=== PATIENT | female | born 1970 | race Caucasian/White ===

== ENCOUNTER 2018-10-03 19:42 | Emergency (ER) ==
--- NOTE | 2018-10-04 07:38 | EKG REPORT ---
SEVERITY:- NORMAL ECG - SINUS RHYTHM : Confirmed by: Reno Huerta MD 04-Oct-2018 07:38:13
== END 2018-10-04 02:20 | disposition left against medical advice (07) ==
LOC: ER 19:42
DX: Z53.21 Procedure and treatment not carried out due to patient leaving prior to being seen by health care provider (principal)
CPT/HCPCS: 93005; 93010

== ENCOUNTER 2019-07-01 16:57 | Emergency (ER) | payer SELFPAY ==
[2019-07-01 17:04] VITALS: BP 192/89
--- NOTE | 2019-07-01 17:20 | ER Document Report ---
HPI - HPI Patient complains to provider of: scalp pain Time Seen by Provider: 07/01/19 17:18 Onset: Other - 3 days Onset/Duration: Worse Quality of pain: Achy Pain Level: 5 Context: Patient presents complaining of right sided scalp pain. Patient states pain radiates to the ear and she noticed some lumps to her scalp. Patient states that today she noticed some red swollen bumps to the right side of her forehead. Associated Symptoms: denies: Fever Exacerbated by: Denies Relieved by: Denies Similar symptoms previously: No Recently seen / treated by doctor: No - ROS ROS below otherwise negative: Yes Systems Reviewed and Negative: Yes All other systems reviewed and negative - EENT EENT: DENIES: Eye problems - NEURO Neurology: DENIES: Headache - GASTROINTESTINAL Gastrointestinal: DENIES: Nausea - REPRODUCTIVE Reproductive: DENIES: : - DERM Skin Color: Normal Notes: swollen area to scalp Past Medical History - General Information source: Patient - Social History Smoking Status: Never Smoker Frequency of alcohol use: recovering alcoholic Drug Abuse: Other Occupation: none Lives with: Family Family History: Reviewed & Not Pertinent Patient has suicidal ideation: No Patient has homicidal ideation: No - Past Medical History Cardiac Medical History: Reports: Hx Hypertension Pulmonary Medical History: Reports: Hx COPD Psychiatric Medical History: Reports: Hx Anxiety, Hx Bipolar Disorder Past Surgical History: Reports: Hx Section Vertical Provider Document - CONSTITUTIONAL Agree With Documented VS: Yes Exam Limitations: No Limitations General Appearance: WD/WN, No Apparent Distress - INFECTION CONTROL TRAVEL OUTSIDE OF THE [place] IN LAST 30 DAYS: No - HEENT HEENT: Atraumatic, Normal ENT Exam, Normocephalic Notes: Sclera clear, no conjunctival irritation - NECK Neck: Normal Inspection, Supple - RESPIRATORY Respiratory: Breath Sounds Normal, No Respiratory Distress - CARDIOVASCULAR Cardiovascular: Regular Rate, Regular Rhythm - MUSCULOSKELETAL/EXTREMETIES Musculoskeletal/Extremeties: MAEW - NEURO Level of Consciousness: Awake, Alert, Appropriate Motor/Sensory: No Motor Deficit - DERM Integumentary: Warm, Dry, Rash - Patient with erythematous papular lesion to right parietal scalp, patient with erythema and subtle swelling to the right side of forehead Course - Re-evaluation Re-evalutation: 07/01/19 17:23 Discussed with patient concern about possible early case of the shingles at this time given cervical dermatome distribution pattern of tender lesions as well as presence of a erythematous papular lesion to the scalp area. Will start antiviral medication. Discussed worsening symptoms that patient should return for. - Vital Signs Vital signs: Temp Pulse Resp BP Pulse Ox 97.6 F 75 18 192/89 H 96 07/01/19 17:02 07/01/19 17:02 07/01/19 17:02 07/01/19 17:02 07/01/19 17:02 Discharge - Discharge Clinical Impression: Skin rash Condition: Stable Disposition: HOME, SELF-CARE Instructions: Shingles ([facility]) Additional Instructions: Return immediately for any new or worsening symptoms Followup with your primary care provider, call tomorrow to make a followup appointment Prescriptions: Valacyclovir HCl [Valacyclovir] 1,000 mg PO TID #21 tablet Referrals: [facility] [Provider Group] - Follow up as needed
== END 2019-07-01 17:24 | disposition home or self-care (01) ==
LOC: ER 16:57
DX: R21 Rash and other nonspecific skin eruption (principal); R51 Headache; I10 Essential (primary) hypertension; J44.9 Chronic obstructive pulmonary disease, unspecified
CPT/HCPCS: 99282

== ENCOUNTER 2019-08-26 11:49 | Observation (INO) | payer SELFPAY ==
[2019-08-26] MEDS ORDERED: ONDANSETRON 4 MG TAB.RAPDIS PO ONE (12:58)
--- NOTE | 2019-08-26 13:10 | ER Document Report ---
ED Medical Screen (RME) - General Chief Complaint: Abdominal Pain Stated Complaint: ABDOMINAL PAIN Time Seen by Provider: 08/26/19 12:49 Mode of Arrival: Ambulatory Information source: Patient Notes: Otherwise healthy 49-year-old female presents emergency department with abdominal pain. Patient reports upper abdominal pain over the last several weeks, worsening over the last few days. Reports associated nausea with vomiting. Exam: Tenderness the epigastric area and right upper quadrant. I have greeted and performed a rapid initial assessment of this patient. A comprehensive ED assessment and evaluation of the patient, analysis of test results and completion of the medical decision making process will be conducted by additional ED providers. I have specifically instructed the patient or family members with the patient to immediately return to any nursing staff should anything change in the patient's condition or with their chief complaint. TRAVEL OUTSIDE OF THE [place] IN LAST 30 DAYS: No - Related Data Allergies/Adverse Reactions: No Known Allergies Allergy (Unverified 08/26/19 12:52) Past Medical History - Social History Chew tobacco use (# tins/day): No Frequency of alcohol use: Occasional Drug Abuse: None - Past Medical History Cardiac Medical History: Reports: Hx Hypertension Pulmonary Medical History: Reports: Hx COPD Psychiatric Medical History: Reports: Hx Anxiety, Hx Bipolar Disorder Past Surgical History: Reports: Hx Section Physical Exam - Vital signs Vitals: Temp Pulse Resp BP Pulse Ox 98.8 F 88 18 150/97 H 99 08/26/19 11:54 08/26/19 11:54 08/26/19 11:54 08/26/19 11:54 08/26/19 11:54 Course - Vital Signs Vital signs: Temp Pulse Resp BP Pulse Ox 97.4 F 74 20 147/82 H 99 08/26/19 17:10 08/26/19 17:10 08/26/19 17:10 08/26/19 17:10 08/26/19 17:10 - Laboratory Result Diagrams: 08/26/19 13:10 08/26/19 13:10 Laboratory results interpreted by me: 08/26/19 08/26/19 13:10 14:11 Eos % (Auto) 7.8 H Absolute Eos (auto) 0.7 H Urine Blood SMALL H Doctor's Discharge - Discharge Clinical Impression: Chronic cholecystitis without calculus Condition: Good Disposition: ADMITTED INPATIENT
[2019-08-26] MEDS ORDERED: FENTANYL CITRATE INJ/PF 100 MCG/2 ML AMPUL IV ONE (13:14)
[2019-08-26] MEDS ORDERED: NORMAL SALINE 1000 ML 1,000 ML IV ONE (13:15)
--- NOTE | 2019-08-26 13:21 | ER Document Report ---
ED General - General Chief Complaint: Abdominal Pain Stated Complaint: ABDOMINAL PAIN Time Seen by Provider: 08/26/19 12:49 Mode of Arrival: Ambulatory TRAVEL OUTSIDE OF THE [place] IN LAST 30 DAYS: No - HPI Notes: Ms. Diaz is a 49-year-old female with prior history of gallbladder disease now presenting with a chief complaint of severe subxiphoid discomfort radiating through the back. This is been present for about 3 days and is gradually getting worse. Is aggravated by eating and by taking a deep breath. Patient was apparently treated by a physician in [place] several years ago and I recommended cholecystectomy at that time of the patient never followed through with this. She does not recall if she was specifically told that she had gallstones. Patient smokes about a pack cigarettes per day. Occasional social alcohol use. Past surgical history remarkable for . Postmenopausal Takes no regular medications and has no known allergies. - Related Data Allergies/Adverse Reactions: No Known Allergies Allergy (Unverified 08/26/19 12:52) Past Medical History - General Information source: Patient - Social History Smoking Status: Current Every Day Smoker Chew tobacco use (# tins/day): No Frequency of alcohol use: Occasional Drug Abuse: None Family History: Reviewed & Not Pertinent Patient has suicidal ideation: No Patient has homicidal ideation: No - Past Medical History Cardiac Medical History: Reports: Hx Hypertension Pulmonary Medical History: Reports: Hx COPD Psychiatric Medical History: Reports: Hx Anxiety, Hx Bipolar Disorder Past Surgical History: Reports: Hx Section Review of Systems - Review of Systems Notes: Constitutional: Negative for fever. HENT: Negative for sore throat. Eyes: Negative for visual changes. Cardiovascular: Negative for chest pain. Respiratory: Negative for shortness of breath. Gastrointestinal: As per HPI. Genitourinary: Negative for dysuria. Musculoskeletal: Negative for back pain. Skin: Negative for rash. Neurological: Negative for headaches, weakness or numbness. 10 point ROS negative except as marked above and in HPI. Physical Exam - Vital signs Vitals: Temp Pulse Resp BP Pulse Ox 98.8 F 88 18 150/97 H 99 08/26/19 11:54 08/26/19 11:54 08/26/19 11:54 08/26/19 11:54 08/26/19 11:54 - Notes Notes: GENERAL: Well-developed well-nourished female of approximately stated age a ppearing in moderate distress secondary to pain holding hand over subxiphoid area.. SKIN: Good turgor no rashes. HEAD: Normocephalic atraumatic. EYES: PERRLA. Conjunctivae and sclerae clear. EARS: CANALS AND TMS CLEAR. NOSE: CLEAR. MOUTH: Moist mucosa. Good dentition. No stridor or edema. No drooling. NECK: Supple. No masses or thyromegaly. No adenopathy. Carotids 2+ without bruits. No JVD. BACK: Symmetrical without tenderness. CHEST: Respirations unlabored. Breath sounds clear and symmetrical. HEART: Regular rhythm. No murmur gallop or rub. ABDOMEN: Moderate epigastric tenderness without masses, organomegaly or rebound. Bowel sounds normally active. No bruits. GENITALIA: Deferred. EXTREMITIES: No edema. No calf tenderness. Cap refill less than 1.5 seconds. Dorsalis pedis and posterior tibial pulses 3+ and symmetrical. NEUROLOGICAL: GCS 15. Alert and oriented x3. Normal gait. Fluent speech. Cranial nerves II through XII intact. Sensorimotor and cerebellar normal. Normal tone. Psychiatric: Anxious. Course - Re-evaluation Re-evalutation: 08/26/19 13:26 Current findings are highly suggestive of acute biliary colic. We will going to give her some IV fentanyl and Zofran with IV fluids. I reviewed an EKG and this shows no acute ST changes. Pending studies include a CBC comprehensive metabolic profile and lipase as well as urinalysis. Gallbladder ultrasound has been requested. 08/26/19 16:12 Current findings on gallbladder ultrasound indicate chronic wall thickening with no ductal dilatation and no obstructing stones. Pain was initially relieved with IV fentanyl. Pain now returning. Patient is persistently tender. She is afebrile hemodynamically stable and her LFTs and white count are normal. Findings discussed with surgical stone call Dr. Salvador who will admit the patient. - Vital Signs Vital signs: Temp Pulse Resp BP Pulse Ox 98.8 F 88 18 150/97 H 99 08/26/19 12:51 08/26/19 11:54 08/26/19 12:51 08/26/19 11:54 08/26/19 12:51 - Laboratory Result Diagrams: 08/26/19 13:10 08/26/19 13:10 Laboratory results interpreted by me: 08/26/19 08/26/19 13:10 14:11 Eos % (Auto) 7.8 H Absolute Eos (auto) 0.7 H Urine Blood SMALL H - EKG Interpretation by Me Additional EKG results interpreted by me: 08/26/19 13:27 Normal sinus rhythm. Rate 63. Normal axis. No acute ST/T wave changes. Discharge - Discharge Clinical Impression: Chronic cholecystitis without calculus Condition: Good Disposition: ADMITTED INPATIENT Admitting Provider: Surgicalist Unit Admitted: Surgical Floor
[2019-08-26 13:26] LABS: ABSOLUTE BASOPHILS # (AUTO) 0.1 10^3/uL (0.0-0.2); ABSOLUTE EOSINOPHILS # (AUTO) 0.7 10^3/uL (0.0-0.6); ABSOLUTE LYMPHOCYTES (AUTO) 2.2 10^3/uL (0.5-4.7); ABSOLUTE MONOCYTES (AUTO) 0.6 10^3/uL (0.1-1.4); ABSOLUTE NEUT (AUTO) 4.9 10^3/uL (1.7-8.2); BASOPHILS % (AUTO) 0.6 % (0-2); EOSINOPHILS % (AUTO) 7.8 % (0-6); HEMATOCRIT 37.3 % (36.0-47.0); HEMOGLOBIN 12.7 g/dL (12.0-15.5); LYMPHOCYTES % (AUTO) 26.2 % (13-45); MEAN CORPUSCULAR HEMOGLOBIN 30.8 pg (27.0-33.4); MEAN CORPUSCULAR HGB CONC 34.1 g/dL (32.0-36.0); MEAN CORPUSCULAR VOLUME 90 fl (80-97); PLATELET COUNT 245 10^3/uL (150-450); RED BLOOD COUNT 4.13 10^6/uL (3.72-5.28); RED CELL DISTRIBUTION WIDTH 13.7 % (11.5-14.0); SEGMENTED NEUTROPHILS % (AUTO) 58.4 % (42-78); TOTAL CELLS COUNTED % (AUTO) 100 %; WHITE BLOOD COUNT 8.5 10^3/uL (4.0-10.5)
[2019-08-26 13:52] LABS: ALBUMIN 3.9 g/dL (3.5-5.0); ALKALINE PHOSPHATASE 93 U/L (38-126); ANION GAP 10 (5-19); ASPARTATE AMINO TRANSFERASE 22 U/L (14-36); BILIRUBIN,DIRECT 0.1 mg/dL (0.0-0.4); BILIRUBIN,TOTAL 0.3 mg/dL (0.2-1.3); BLOOD UREA NITROGEN 8 mg/dL (7-20); CALCIUM 9.7 mg/dL (8.4-10.2); CARBON DIOXIDE 28 mmol/L (22-30); CHLORIDE 102 mmol/L (98-107); GLUCOSE 93 mg/dL (75-110); POTASSIUM 4.6 mmol/L (3.6-5.0); TOTAL PROTEIN 7.2 g/dL (6.3-8.2)
--- NOTE | 2019-08-26 14:16 | RADIOLOGY REPORT (SQ) ---
EXAM DESCRIPTION: U/S ABDOMEN LIMITED W/O DOP COMPLETED DATE/TIME: 08/26/2019 1:58 pm REASON FOR STUDY: epigastric/RUQ pain COMPARISON: None. TECHNIQUE: Dynamic and static grayscale images acquired of the abdomen and recorded on PACS. Euno vargas selected color Doppler and spectral images recorded. LIMITATIONS: None. FINDINGS: PANCREAS: No masses. Visualized pancreatic duct normal caliber. LIVER: Fatty infiltration. No dominant masses. LIVER VASCULATURE: Normal directional flow of the main portal vein and hepatic veins. GALLBLADDER: Gallbladder wall is thickened. Echodensity is present with ring down artifact indicatin g adenomyomatosis. No stones. ULTRASOUND-DETECTED LAI'S SIGN: Negative. INTRAHEPATIC DUCTS AND COMMON DUCT: CBD and intrahepatic ducts normal caliber. No filling defects. INFERIOR VENA CAVA: Normal flow. AORTA: No aneurysm. RIGHT KIDNEY: Normal size. Normal echogenicity. No solid or suspicious masses. No hydronephrosis. No calcifications. PERITONEAL AND RIGHT PLEURAL SPACE: No ascites or effusions. OTHER: No other significant findings. IMPRESSION: Adenomyomatosis of the gallbladder. Fatty infiltration of the liver. TECHNICAL DOCUMENTATION: JOB ID: [id number] [employer]- All Rights Reserved Reading location - IP/workstation name: [email or web address]
[2019-08-26 14:46] LABS: APPEARANCE,URINE CLEAR; BILIRUBIN,URINE NEGATIVE (NEGATIVE); COLOR,URINE STRAW; GLUCOSE, URINE NEGATIVE (NEGATIVE); KETONES,URINE NEGATIVE (NEGATIVE); LEUKOCYTE ESTERASE,URINE NEGATIVE (NEGATIVE); NITRITE,URINE NEGATIVE (NEGATIVE); PROTEIN,URINE NEGATIVE (NEGATIVE); URINE SPECIFIC GRAVITY 1.004; UROBILINOGEN,URINE NEGATIVE mg/dL (<2.0)
[2019-08-26] MEDS: FENTANYL CITRATE INJ/PF 100 MCG/2 ML AMPUL IV PRN (16:50)
[2019-08-26] MEDS ORDERED: DEXTROSE 40% GEL 15 GM TUBE PO PRN ×2 (17:21)
[2019-08-26] MEDS ORDERED: DEXTROSE 50%-WATER 25 GM/50 ML DISP.SYRIN IV PRN ×2 (17:21)
[2019-08-26] MEDS ORDERED: ONDANSETRON HCL INJ/PF 4 MG/2 ML SDV IV PRN (17:21)
[2019-08-26] MEDS ORDERED: GLUCAGON,HUMAN RECOMB 1 MG INJ SUBCUT PRN (17:21)
[2019-08-26] MEDS ORDERED: LIDOCAINE 2% VISCOUS SOLN 20 ML UDCUP PO ONE (18:30)
[2019-08-26] MEDS ORDERED: METOCLOPRAMIDE HCL 10 MG TABLET PO ONE (18:30)
[2019-08-26] MEDS ORDERED: FAMOTIDINE 20 MG TABLET PO ONE (18:30)
[2019-08-26] MEDS ORDERED: MAG HYDROX/AL HYDROX/SIMETH SUSP 30 ML UDCUP PO ONE (18:30)
[2019-08-26] MEDS ORDERED: METOCLOPRAMIDE HCL ORAL SOLN 10 MG/10 ML UDCUP PO ONE (18:30)
[2019-08-26] MEDS: MORPHINE SULFATE 10 MG/ML INJ IV PRN ×2 (18:54→23:37)
[2019-08-26] MEDS: NORMAL SALINE 1000 ML 1,000 ML IV PRN (20:03)
[2019-08-26] MEDS ORDERED: INFLUENZA QUAD (6MOS+) 2019-20 VAC 0.5 ML SYR IM ONE (20:18)
--- NOTE | 2019-08-26 20:51 | PDOC H&P ---
History of Present Illness Admission Date/PCP: 08/26/19 17:02 Patient complains of: Epigastric abdominal pain x3 days, hematemesis. History of Present Illness: ADWOA PHILIP is a 49 year old female with a 3-day history of epigastric abdominal pain. The patient reports pain at all times, worse with eating. She has vomited several times in the last few days. One episode of vomiting produced blood. Patient has a history of tobacco abuse, recent alcohol consu mption, inhaled steroids for emphysema, daily caffeine intake, and intolerance to all types of foods. Patient reports that even bread and water cause her to have pain and nausea. Patient denies any chest pain, shortness of breath, fevers, chills, melena, hematochezia, dizziness, orthostasis. Patient has a history of peptic ulcer disease and "is supposed to take Zantac". She has not taken any H2 blockers or PPIs in some time, as she cannot afford it. The patient had an ultrasound of her gallbladder in the emergency department showing "thickening of the gallbladder wall". The patient denies right upper quadrant pain. Past Medical History Cardiac Medical History: Reports: Hypertension Pulmonary Medical History: Reports: Chronic Obstructive Pulmonary Disease (COPD) Psychiatric Medical History: Reports: Bipolar Disorder Past Surgical History Past Surgical History: Reports: Section Social History Smoking Status: Current Every Day Smoker Electronic Cigarette use?: No Frequency of Alcohol Use: Social Hx Recreational Drug Use: No Family History Family History: Reviewed & Not Pertinent Parental Family History Reviewed: Yes Children Family History Reviewed: Yes Sibling(s) Family History Reviewed.: Yes Medication/Allergy Home Medications: Buspirone HCl [Buspar 15 mg Tablet] 15 mg PO TID 08/26/19 Allergies/Adverse Reactions: No Known Allergies Allergy (Unverified 08/26/19 12:52) Review of Systems Constitutional: PRESENT: anorexia. ABSENT: chills, fatigue, fever(s), headache(s) Eyes: ABSENT: visual disturbances Ears: ABSENT: hearing changes Nose, Mouth, and Throat: ABSENT: sore throat Cardiovascular: ABSENT: chest pain Respiratory: ABSENT: cough Gastrointestinal: PRESENT: abdominal pain - Epigastric, heartburn, hematemesis, nausea, vomiting Genitourinary: ABSENT: dysuria Musculoskeletal: ABSENT: back pain Integumentary: ABSENT: pruritus, rash Neurological: ABSENT: confusion, convulsions, dizziness Psychiatric: ABSENT: anxiety, depression Endocrine: ABSENT: cold intolerance, heat intolerance Hematologic/Lymphatic: ABSENT: easy bleeding, easy bruising Physical Exam Vital Signs: Temp Pulse Resp BP Pulse Ox 97.4 F 74 20 147/82 H 99 08/26/19 17:10 08/26/19 17:10 08/26/19 17:10 08/26/19 17:10 08/26/19 17:10 Intake & Output 08/25/19 08/26/19 08/27/19 06:59 06:59 06:59 Intake Total 1000 Balance 1000 Weight 84.2 kg General appearance: PRESENT: no acute distress, cooperative Head exam: PRESENT: atraumatic, normocephalic Eye exam: PRESENT: EOMI, PERRLA. ABSENT: scleral icterus Mouth exam: PRESENT: moist, neck supple Neck exam: ABSENT: meningismus, tenderness, thyromegaly, tracheal deviation Respiratory exam: PRESENT: clear to auscultation barbie. ABSENT: chest wall tenderness Cardiovascular exam: PRESENT: RRR Vascular exam: PRESENT: normal capillary refill GI/Abdominal exam: PRESENT: soft, tenderness - Mild epigastric. ABSENT: distended, firm, guarding Rectal exam: PRESENT: deferred Extremities exam: ABSENT: clubbing Musculoskeletal exam: PRESENT: ambulatory. ABSENT: deformity Neurological exam: PRESENT: alert, awake, oriented to person, oriented to place, oriented to time, oriented to situation. ABSENT: motor sensory deficit Psychiatric exam: ABSENT: agitated, anxious, depressed Focused psych exam: ABSENT: delusional Skin exam: ABSENT: cyanosis, erythema, jaundice Results Laboratory Results: 08/26/19 13:10 08/26/19 13:10 08/26/19 08/26/19 08/26/19 13:10 13:10 13:10 WBC 8.5 RBC 4.13 Hgb 12.7 Hct 37.3 MCV 90 MCH 30.8 MCHC 34.1 RDW 13.7 Plt Count 245 Seg Neutrophils % 58.4 Sodium 140.2 Potassium 4.6 Chloride 102 Carbon Dioxide 28 Anion Gap 10 BUN 8 Creatinine 0.94 Est GFR ( Amer) > 60 Glucose 93 Calcium 9.7 Total Bilirubin 0.3 AST 22 Alkaline Phosphatase 93 Total Protein 7.2 Albumin 3.9 Lipase 72.4 Serum HCG, Qual NEGATIVE Urine Color Urine Appearance Urine pH Ur Specific [place] Urine Protein Urine Glucose (UA) Urine Ketones Urine Blood Urine Nitrite Ur Leukocyte Esterase Urine WBC (Auto) Urine RBC (Auto) 08/26/19 14:11 WBC RBC Hgb Hct MCV MCH MCHC RDW Plt Count Seg Neutrophils % Sodium Potassium Chloride Carbon Dioxide Anion Gap BUN Creatinine Est GFR ( Amer) Glucose Calcium Total Bilirubin AST Alkaline Phosphatase Total Protein Albumin Lipase Serum HCG, Qual Urine Color STRAW Urine Appearance CLEAR Urine pH 7.0 Ur Specific [place] 1.004 Urine Protein NEGATIVE Urine Glucose (UA) NEGATIVE Urine Ketones NEGATIVE Urine Blood SMALL H Urine Nitrite NEGATIVE Ur Leukocyte Esterase NEGATIVE Urine WBC (Auto) 1 Urine RBC (Auto) 1 Impressions: Abdomen Ultrasound 08/26/19 12:58 IMPRESSION: Adenomyomatosis of the gallbladder. Fatty infiltration of the liver. Assessment & Plan - Diagnosis (1) Epigastric abdominal pain Is this a current diagnosis for this admission?: Yes - Plan Summary Plan Summary: This is a 49-year-old female with epigastric abdominal pain. She uses caffeine, smokes cigarettes, drinks alcohol, and uses steroids routinely. I believe the patient is experiencing gastritis. She has pain with bread and water. She has an ultrasound which is consistent with adenomyomatosis, not acute cholecystitis. Her white count is normal. Her liver function tests are normal. I have discussed this at length with the patient. I have offered the patient a GI cocktail and an EGD tomorrow. She has agreed to this. If her EGD is completely normal I will revisit cholecystectomy as an option. The patient is in agreement with the treatment plan. Risks/benefits discussed, informed consent obtained, and all questions answered.
[2019-08-26] MEDS ORDERED: PANTOPRAZOLE SODIUM 40 MG VIAL IV ONE (20:52)
--- NOTE | 2019-08-26 21:25 | EKG REPORT ---
SEVERITY:- NORMAL ECG - SINUS RHYTHM : Confirmed by: Walter Connell 26-Aug-2019 21:25:06
[2019-08-27] MEDS: MORPHINE SULFATE 10 MG/ML INJ IV PRN ×5 (04:22→21:31)
[2019-08-27] MEDS: NORMAL SALINE 1000 ML 1,000 ML IV PRN ×3 (05:19→19:57)
[2019-08-27 05:43] LABS: ABSOLUTE EOSINOPHILS # (AUTO) 0.6 10^3/uL (0.0-0.6); ABSOLUTE LYMPHOCYTES (AUTO) 2.9 10^3/uL (0.5-4.7); ABSOLUTE MONOCYTES (AUTO) 0.5 10^3/uL (0.1-1.4); ABSOLUTE NEUT (AUTO) 2.9 10^3/uL (1.7-8.2); BASOPHILS % (AUTO) 0.6 % (0-2); HEMATOCRIT 35.3 % (36.0-47.0); LYMPHOCYTES % (AUTO) 41.3 % (13-45); MEAN CORPUSCULAR HEMOGLOBIN 30.7 pg (27.0-33.4); MEAN CORPUSCULAR HGB CONC 33.9 g/dL (32.0-36.0); MEAN CORPUSCULAR VOLUME 91 fl (80-97); MONOCYTES % (AUTO) 7.6 % (3-13); PLATELET COUNT 206 10^3/uL (150-450); RED BLOOD COUNT 3.89 10^6/uL (3.72-5.28); RED CELL DISTRIBUTION WIDTH 13.8 % (11.5-14.0); SEGMENTED NEUTROPHILS % (AUTO) 41.5 % (42-78); TOTAL CELLS COUNTED % (AUTO) 100 %
[2019-08-27 05:50] LABS: ALBUMIN 3.4 g/dL (3.5-5.0); ALKALINE PHOSPHATASE 80 U/L (38-126); ANION GAP 7 (5-19); ASPARTATE AMINO TRANSFERASE 20 U/L (14-36); BILIRUBIN,DIRECT 0.1 mg/dL (0.0-0.4); BILIRUBIN,TOTAL 0.4 mg/dL (0.2-1.3); BLOOD UREA NITROGEN 7 mg/dL (7-20); CALCIUM 9.4 mg/dL (8.4-10.2); CARBON DIOXIDE 28 mmol/L (22-30); CHLORIDE 107 mmol/L (98-107); GLUCOSE 90 mg/dL (75-110); POTASSIUM 4.6 mmol/L (3.6-5.0); TOTAL PROTEIN 6.2 g/dL (6.3-8.2)
--- NOTE | 2019-08-27 07:30 | PDOC PROGRESS REPORT ---
Subjective Progress Note for:: 08/27/19 Subjective:: 49-year-old female with constant epigastric pain, worse with eating anything, including bread and water. She has a history of smoking, alcohol use, and caffeine use. She reports an episode of hematemesis 2 to 3 days ago. She continues to have pain and nausea. She has not vomited since admission. She denies chest pain, shortness of breath, headache, dizziness, orthostasis. Reason For Visit: ACUTE CHOLECYSTITIS Physical Exam Vital Signs: Temp Pulse Resp BP Pulse Ox 97.3 F 61 18 131/65 H 98 08/26/19 23:55 08/26/19 23:55 08/26/19 23:55 08/26/19 23:55 08/26/19 23:55 Intake & Output 08/26/19 08/27/19 08/28/19 06:59 06:59 06:59 Intake Total 1999 Balance 1999 Weight 84 kg General appearance: PRESENT: no acute distress, cooperative Head exam: PRESENT: atraumatic, normocephalic Eye exam: PRESENT: EOMI, PERRLA Mouth exam: PRESENT: moist, neck supple Neck exam: ABSENT: meningismus, tenderness, thyromegaly, tracheal deviation Respiratory exam: ABSENT: chest wall tenderness Cardiovascular exam: PRESENT: RRR Pulses: PRESENT: normal radial pulses GI/Abdominal exam: PRESENT: soft. ABSENT: distended, firm, guarding Rectal exam: PRESENT: deferred Extremities exam: ABSENT: clubbing Neurological exam: PRESENT: alert, awake, oriented to person, oriented to place, oriented to time, oriented to situation Psychiatric exam: ABSENT: agitated, anxious Focused psych exam: ABSENT: delusional Skin exam: ABSENT: cyanosis, erythema, jaundice Results Laboratory Results: 08/27/19 05:16 08/27/19 05:16 08/26/19 08/26/19 08/26/19 13:10 13:10 13:10 WBC 8.5 RBC 4.13 Hgb 12.7 Hct 37.3 MCV 90 MCH 30.8 MCHC 34.1 RDW 13.7 Plt Count 245 Seg Neutrophils % 58.4 Sodium 140.2 Potassium 4.6 Chloride 102 Carbon Dioxide 28 Anion Gap 10 BUN 8 Creatinine 0.94 Est GFR ( Amer) > 60 Glucose 93 Calcium 9.7 Total Bilirubin 0.3 AST 22 Alkaline Phosphatase 93 Total Protein 7.2 Albumin 3.9 Lipase 72.4 Serum HCG, Qual NEGATIVE Urine Color Urine Appearance Urine pH Ur Specific [place] Urine Protein Urine Glucose (UA) Urine Ketones Urine Blood Urine Nitrite Ur Leukocyte Esterase Urine WBC (Auto) Urine RBC (Auto) 08/26/19 08/27/19 08/27/19 14:11 05:16 05:16 WBC 7.0 RBC 3.89 Hgb 12.0 Hct 35.3 L MCV 91 MCH 30.7 MCHC 33.9 RDW 13.8 Plt Count 206 Seg Neutrophils % 41.5 L Sodium 142.3 Potassium 4.6 Chloride 107 Carbon Dioxide 28 Anion Gap 7 BUN 7 Creatinine 1.05 Est GFR ( Amer) > 60 Glucose 90 Calcium 9.4 Total Bilirubin 0.4 AST 20 Alkaline Phosphatase 80 Total Protein 6.2 L Albumin 3.4 L Lipase Serum HCG, Qual Urine Color STRAW Urine Appearance CLEAR Urine pH 7.0 Ur Specific [place] 1.004 Urine Protein NEGATIVE Urine Glucose (UA) NEGATIVE Urine Ketones NEGATIVE Urine Blood SMALL H Urine Nitrite NEGATIVE Ur Leukocyte Esterase NEGATIVE Urine WBC (Auto) 1 Urine RBC (Auto) 1 Impressions: Abdomen Ultrasound 08/26/19 12:58 IMPRESSION: Adenomyomatosis of the gallbladder. Fatty infiltration of the liver. Assessment & Plan - Diagnosis (1) Epigastric abdominal pain Is this a current diagnosis for this admission?: Yes - Time Time Spent with patient: Less than 15 minutes - Plan Summary Plan Summary: This is a 49-year-old female with epigastric abdominal pain. I highly suspect she has gastritis or peptic ulcer disease. She has a history of this. She does not take her H2 blockers. She has a gallbladder ultrasound showing adenomyomatosis. Her symptoms and laboratory findings are not consistent with acute cholecystitis. Plan for EGD today for diagnostic purposes. Further recommendations will be made depending on the patient's clinical course.
[2019-08-27] MEDS ORDERED: MIDAZOLAM 2 MG/2 ML INJ ONE (08:17)
[2019-08-27] MEDS ORDERED: PROPOFOL INJ 200 MG/20 ML VIAL IV ONE (08:17)
[2019-08-27] MEDS ORDERED: ALBUTEROL SULFATE 0.083% NEB 2.5 MG/3 ML AMPUL NEB ONE (08:19)
--- NOTE | 2019-08-27 10:05 | Operative Report ---
Nonrecallable Operative Report DATE OF SURGERY: 08/27/19 PREOPERATIVE DIAGNOSIS: Epigastric abdominal pain, hematemesis. POSTOPERATIVE DIAGNOSIS: 1. Large hiatal hernia. 2. Severe reflux esophagitis extending from 25 cm, to the GE junction at 35 cm. 3. Gastritis. 4. Duodenitis. OPERATION: EGD with biopsy SURGEON: GABINO DURAND ANESTHESIA: LMAC TISSUE REMOVED OR ALTERED: 1. Duodenal biopsy. 2. Antral biopsy. 3. Biopsy of distal esophagus. COMPLICATIONS: None apparent ESTIMATED BLOOD LOSS: Minimal PROCEDURE: Procedure in detail: After informed consent was obtained, the patient was brought to the operating room and laid in the left lateral decubitus position. The endoscope was passed down the oropharynx, down the esophagus, and into the stomach. The stomach was insufflated with air. Immediately there was noted to be gastritis throughout the stomach with prominent gastric folds, petechiae, and old blood within the stomach. The scope was pushed into the first and second portions of the duodenum. There was active inflammation in the first portion of the duodenum. Biopsy was taken at the active inflammation. The scope was withdrawn back into the antrum, where antral biopsy was taken to rule out H. pylori infection. A retroflexion maneuver was then performed in the body of the stomach. A very large hiatal hernia was identified. The scope was withdrawn up into the hiatal hernia, and into the distal esophagus. There was severe reflux esophagitis present extending from 35 cm (at the GE junction) up to approximately 25 cm. There were large, deep ulcerations that bled with manipulation of the scope. Biopsy was taken in the distal esophagus, to rule out Garay's changes. The scope was then withdrawn up the remainder of the esophagus, and out the oropharynx. Once the scope was removed, the procedure was concluded. All sponge, instrument, and needle counts were correct x2. Condition: Stable.
[2019-08-27] MEDS: PANTOPRAZOLE SODIUM 40 MG VIAL IV SCH (10:55)
[2019-08-27] MEDS: BUSPIRONE HCL 10 MG TABLET PO SCH ×3 (10:56→17:32)
[2019-08-27] MEDS: NICOTINE 14 MG/24 HR PATCH.TD24 TD SCH (10:57)
[2019-08-27] MEDS: SUCRALFATE 1 GM TABLET PO SCH ×3 (10:58→21:24)
[2019-08-27] MEDS ORDERED: MELATONIN 5 MG TABLET PO SCH (22:00)
[2019-08-28] MEDS: FENTANYL CITRATE INJ/PF 100 MCG/2 ML AMPUL IV PRN ×2 (01:10→13:26)
[2019-08-28] MEDS: NORMAL SALINE 1000 ML 1,000 ML IV PRN ×2 (04:06→13:36)
[2019-08-28] MEDS: MORPHINE SULFATE 10 MG/ML INJ IV PRN ×3 (04:34→13:54)
[2019-08-28] MEDS: SUCRALFATE 1 GM TABLET PO SCH ×3 (08:08→15:09)
[2019-08-28] MEDS: NICOTINE 14 MG/24 HR PATCH.TD24 TD SCH (09:44)
[2019-08-28] MEDS: PANTOPRAZOLE SODIUM 40 MG VIAL IV SCH (09:44)
[2019-08-28] MEDS: BUSPIRONE HCL 10 MG TABLET PO SCH ×2 (09:44→13:26)
--- NOTE | 2019-08-28 15:03 | PDOC DISCHARGE SUMMARY ---
General - Admit/Disc Date/PCP Admission Date/Primary Care Provider: 08/26/19 17:02 Discharge Date: 08/28/19 - Discharge Diagnosis Final Diagnosis: Reflux esophagitis Gastritis and duodenitis - Assessment Summary: The patient is a 49-year-old female, obese, with a history of epigastric pain. An upper endoscopy was done on August 27, 2019 revealing severe reflux esophagitis, large oral hernia, duodenitis and gastritis. The patient was started on aggressive antacid therapy with improvement of her symptoms. She was then discharged home on August 28, 2019. The discharge instructions: Refrain from coffee, alcohol, tobacco smoking, tomato juice, acidic fluids, fried food, and any other foods which might cause acid reflux. Dinner at least 3 hours prior to bedtime, sleep with head elevated on 2-3 pillows. Take [id number] Nexium 40 mg by mouth twice a day, MiraLAX 1 to 2 tablespoons every 4-6 hours as needed for reflux, Tums 1 tab as needed, Carafate 1 g p.o. 4 times a day, Nicorette patch [id number]; resume all preadmission home medications; follow-up with Dr. Salvador in 2 weeks - Additional Information Resuscitation Status: Full Code Discharge Diet: Other (Comments) - No coffee, alcohol, acidic fluids, orange juice, fried food Discharge Activity: Activity As Tolerated Referrals: GABINO SALVADOR MD [ACTIVE STAFF] - 09/11/19 8:15 am Prescriptions: Sucralfate [Carafate 1 gm Tablet] 1 gm PO ACHS #100 tablet Home Medications: Buspirone HCl [Buspar 15 mg Tablet] 15 mg PO Q12 08/26/19 Nicotine [Nicoderm 14 mg/24 Hr Transdermal Patch] 1 each TD DAILY patch.td24 08/28/19 Sucralfate [Carafate 1 gm Tablet] 1 gm PO ACHS #100 tablet 08/28/19 History of Present Illiness History of Present Illness: ADWOA PHILIP is a 49 year old female Physical Exam Vital Signs: Temp Pulse Resp BP Pulse Ox 97.4 F 74 18 149/71 H 98 08/28/19 08:09 08/28/19 08:09 08/28/19 08:09 08/28/19 08:09 08/28/19 08:09 Intake & Output 08/27/19 08/28/19 08/29/19 06:59 06:59 06:59 Intake Total 1999 53 1000 Balance 1999 5318 1000 Weight 84 kg 86.5 kg Results Laboratory Results: WBC 7.0 10^3/uL (4.0-10.5) 08/27/19 05:16 RBC 3.89 10^6/uL (3.72-5.28) 08/27/19 05:16 Hgb 12.0 g/dL (12.0-15.5) 08/27/19 05:16 Hct 35.3 % (36.0-47.0) L 08/27/19 05:16 MCV 91 fl (80-97) 08/27/19 05:16 MCH 30.7 pg (27.0-33.4) 08/27/19 05:16 MCHC 33.9 g/dL (32.0-36.0) 08/27/19 05:16 RDW 13.8 % (11.5-14.0) 08/27/19 05:16 Plt Count 206 10^3/uL (150-450) 08/27/19 05:16 Lymph % (Auto) 41.3 % (13-45) 08/27/19 05:16 Mccormick % (Auto) 7.6 % (3-13) 08/27/19 05:16 Eos % (Auto) 9.0 % (0-6) H 08/27/19 05:16 Baso % (Auto) 0.6 % (0-2) 08/27/19 05:16 Absolute Neuts (auto) 2.9 10^3/uL (1.7-8.2) 08/27/19 05:16 Absolute Lymphs (auto) 2.9 10^3/uL (0.5-4.7) 08/27/19 05:16 Absolute Monos (auto) 0.5 10^3/uL (0.1-1.4) 08/27/19 05:16 Absolute Eos (auto) 0.6 10^3/uL (0.0-0.6) 08/27/19 05:16 Absolute Basos (auto) 0.0 10^3/uL (0.0-0.2) 08/27/19 05:16 Seg Neutrophils % 41.5 % (42-78) L 08/27/19 05:16 Sodium 142.3 mmol/L (137-145) 08/27/19 05:16 Potassium 4.6 mmol/L (3.6-5.0) 08/27/19 05:16 Chloride 107 mmol/L (98-107) 08/27/19 05:16 Carbon Dioxide 28 mmol/L (22-30) 08/27/19 05:16 Anion Gap 7 (5-19) 08/27/19 05:16 BUN 7 mg/dL (7-20) 08/27/19 05:16 Creatinine 1.05 mg/dL (0.52-1.25) 08/27/19 05:16 Est GFR ( Amer) > 60 (>60) 08/27/19 05:16 Est GFR (MDRD) Non-Af 55 (>60) L 08/27/19 05:16 Glucose 90 mg/dL (75-110) 08/27/19 05:16 Calcium 9.4 mg/dL (8.4-10.2) 08/27/19 05:16 Total Bilirubin 0.4 mg/dL (0.2-1.3) 08/27/19 05:16 Direct Bilirubin 0.1 mg/dL (0.0-0.4) 08/27/19 05:16 Neonat Total Bilirubin Not Reportable 08/27/19 05:16 Neonat Direct Bilirubin Not Reportable 08/27/19 05:16 Neonat Indirect Bili Not Reportable 08/27/19 05:16 AST 20 U/L (14-36) 08/27/19 05:16 ALT 14 U/L (<35) 08/27/19 05:16 Alkaline Phosphatase 80 U/L (38-126) 08/27/19 05:16 Total Protein 6.2 g/dL (6.3-8.2) L 08/27/19 05:16 Albumin 3.4 g/dL (3.5-5.0) L 08/27/19 05:16 Lipase 72.4 U/L (23-300) 08/26/19 13:10 Serum HCG, Qual NEGATIVE (NEGATIVE) 08/26/19 13:10 Urine Color STRAW 08/26/19 14:11 Urine Appearance CLEAR 08/26/19 14:11 Urine pH 7.0 (5.0-9.0) 08/26/19 14:11 Ur Specific Furman 1.004 08/26/19 14:11 Urine Protein NEGATIVE mg/dL (NEGATIVE) 08/26/19 14:11 Urine Glucose (UA) NEGATIVE mg/dL (NEGATIVE) 08/26/19 14:11 Urine Ketones NEGATIVE mg/dL (NEGATIVE) 08/26/19 14:11 Urine Blood SMALL (NEGATIVE) H 08/26/19 14:11 Urine Nitrite NEGATIVE (NEGATIVE) 08/26/19 14:11 Urine Bilirubin NEGATIVE (NEGATIVE) 08/26/19 14:11 Urine Urobilinogen NEGATIVE mg/dL (<2.0) 08/26/19 14:11 Ur Leukocyte Esterase NEGATIVE (NEGATIVE) 08/26/19 14:11 Urine WBC (Auto) 1 /HPF 08/26/19 14:11 Urine RBC (Auto) 1 /HPF 08/26/19 14:11 Urine Bacteria (Auto) TRACE /HPF 08/26/19 14:11 Squamous Epi Cells Auto 1 /HPF 08/26/19 14:11 Urine Mucus (Auto) RARE /LPF 08/26/19 14:11 Urine Ascorbic Acid NEGATIVE (NEGATIVE) 08/26/19 14:11 Impressions: Abdomen Ultrasound 08/26/19 12:58 IMPRESSION: Adenomyomatosis of the gallbladder. Fatty infiltration of the liver.
[2019-08-28 15:38] VITALS: BP 141/65
== END 2019-08-28 15:45 | disposition home or self-care (01) ==
LOC: ER 11:49 → INTOOBSV 17:02 → EH 17:02 → 4N 19:20
PROVIDERS: ATTEND Surgery
DX: K21.0 Gastro-esophageal reflux disease with esophagitis (principal); K29.70 Gastritis, unspecified, without bleeding; K22.11 Ulcer of esophagus with bleeding; K29.80 Duodenitis without bleeding; K44.9 Diaphragmatic hernia without obstruction or gangrene; K76.0 Fatty (change of) liver, not elsewhere classified; K82.8 Other specified diseases of gallbladder; F41.9 Anxiety disorder, unspecified; Z23 Encounter for immunization; J43.9 Emphysema, unspecified; F17.210 Nicotine dependence, cigarettes, uncomplicated; Z59.8 Other problems related to housing and economic circumstances; Z91.14 Patient's other noncompliance with medication regimen; Z78.0 Asymptomatic menopausal state
CPT/HCPCS: 93005; 96376; 99285; 96361; 96374; 43239; 36415 ×2; 83690; 84703; 85025 ×2; 80053 ×2; 81001; 88342 ×2; 88305 ×2; 88312 ×2; 76705; 90686; 94799; 93010; 00731; G0378 ×4; J2250; S0119; J3010 ×2; J3490 ×2; J2270 ×3; C9113 ×3; J7030 ×3; J2704; 731

== ENCOUNTER 2019-09-02 10:31 | Emergency (ER) | payer SELFPAY ==
[2019-09-02 11:02] VITALS: BP 158/89
[2019-09-02] MEDS ORDERED: DIPHENHYDRAMINE HCL 25 MG CAPSULE PO ONE (11:41)
[2019-09-02] MEDS ORDERED: FAMOTIDINE 20 MG TABLET PO ONE (11:41)
[2019-09-02] MEDS ORDERED: DEXAMETHASONE SOD PHOS INJ 10 MG/1 ML VIAL IM ONE (11:41)
--- NOTE | 2019-09-02 11:45 | ER Document Report ---
HPI - HPI Time Seen by Provider: 09/02/19 11:33 Pain Level: Denies Notes: Patient is a 49-year-old female with no significant past medical history who presents complaining of some redness to her left forehead with some left upper eyelid swelling that is been itchy that began yesterday. Patient states that overall her symptoms have improved on their own, but she did take Benadryl yesterday. No recent illness. She is not aware of any contact with new chemicals, detergents, soaps, clothing. She does not wear contact lenses. Denies drug allergies. She has not noticed any eye irritation, redness, or drainage. She has not had any changes in her vision. Denies recent illness. Denies any headache, fever, head injury, neck pain, changes in vision/speech/mentation/hearing, URI, sore throat, chest pain, palpitations, syncope, cough, shortness of breath, wheeze, dyspnea, abdominal pain, nausea/vomiting/diarrhea, urinary retention, dysuria, hematuria, loss of control of bowel or bladder, numbness/tingling, saddle anesthesia, muscle paralysis/weakness. - ROS Systems Reviewed and Negative: Yes All other systems reviewed and negative - CONSTITUTIONAL Constitutional: DENIES: Fever - REPRODUCTIVE Reproductive: DENIES: : Past Medical History - Social History Smoking Status: Current Every Day Smoker Chew tobacco use (# tins/day): No Frequency of alcohol use: None Drug Abuse: None Family History: Reviewed & Not Pertinent Patient has suicidal ideation: No Patient has homicidal ideation: No - Past Medical History Cardiac Medical History: Reports: Hx Hypertension Pulmonary Medical History: Reports: Hx COPD Psychiatric Medical History: Reports: Hx Anxiety, Hx Bipolar Disorder Past Surgical History: Reports: Hx Section Vertical Provider Document - CONSTITUTIONAL Agree With Documented VS: Yes Notes: PHYSICAL EXAMINATION: GENERAL: Well-appearing, well-nourished and in no acute distress. A&Ox4 HEAD: Atraumatic, normocephalic. EYES: Pupils equal round and reactive to light, extraocular movements intact, sclera anicteric, conjunctiva normal b/l w/o discharge or matting. Non-tender to palp of the globe and eye itself. No surrounding erythema noted. Visual acuity 20/20 b/l and in each eye (performed by myself at bedside with my own eye chart). There is minimal left upper eyelid swelling/puffiness with mild dry skin to the left forehead. No lesions or vesiculations. Non-tender. ENT: EAC clear b/l. TM's intact b/l without erythema, fluid, or perforation. Nares patent and without discharge. oropharynx clear without exudates. No tonsilar hypertrophy or erythema. Moist mucous membranes. No sinus tenderness. Uvula midline. No palatine shift. No airway compromise. No drooling or hoarseness. NECK: Normal range of motion, supple without lymphadenopathy. No rigidity/meningismus. LUNGS: Breath sounds clear to auscultation bilaterally and equal. No wheezes rales or rhonchi. HEART: Regular rate and rhythm without murmurs, rubs, gallops. Musculoskeletal: Ext b/l: FROM to passive/active. Strength 5+/5. Extremities: No cyanosis, clubbing, or edema b/l. Peripheral pulses 2+. Capillary refill less than 3 seconds. NEUROLOGICAL: Cranial nerves grossly intact. Normal speech, normal gait. Normal sensory, motor exams PSYCH: Normal mood, normal affect. SKIN: Warm, Dry, normal turgor, no rashes or lesions noted. - INFECTION CONTROL TRAVEL OUTSIDE OF THE [place] IN LAST 30 DAYS: No Course - Re-evaluation Re-evalutation: 09/02/19 11:43 Patient is an afebrile, well-hydrated, 49-year-old female who presents with left upper eyelid puffiness which I suspect is most likely due to allergy. Vitals are acceptable without significant tachycardia, tachypnea, or hypoxia. PE is otherwise unremarkable. Patient is nontoxic-appearing and is able to tolerate p.o. without difficulty. No labs or imaging warranted. Low suspicion for any retained corneal or lid foreign body, deep space infection including orbital cellulitis/abscess, acute glaucoma, penetrating globe injury, retinal detachment, meningitis, sepsis, fracture, compartment syndrome. Patient was given Decadron, Benadryl, and Pepcid. She is already had improvement without medications. Conservative measures otherwise for symptoms with proper handwashing. Recheck with your PCM in 3-5 days. Consider follow-up with ophthalmology. Return to the ED with any worsening/concerning symptoms otherwise as reviewed in discharge. Patient is in agreement. - Vital Signs Vital signs: Temp Pulse Resp BP Pulse Ox 97.5 F 89 18 158/89 H 96 09/02/19 11:01 09/02/19 11:01 09/02/19 11:01 09/02/19 11:01 09/02/19 11:01 Discharge - Discharge Clinical Impression: Swelling of left upper eyelid Condition: Stable Disposition: HOME, SELF-CARE Additional Instructions: Keep eyes clean Avoid scratching/touching eyes Wash hands regularly Use eye drops as directed Maintain adequate fluid intake tylenol/ibuprofen as needed over the counter cold medication as needed for symptoms F/u: with your PCM in 3-5 days for a recheck Consider consult with Ophthalmology for ongoing/worsening symptoms Return to the ED with any worsening symptoms and/or development of fever, headache, changes in vision, eye pain, worsening eye redness, redness around the eyes, purulent discharge, sore throat, facial swelling, neck pain/stiffness, chest pain, palpitations, syncope, shortness of breath, trouble breathing, abdominal pain, n/v/d, blood in stool/urine, dysuria, or other worsening symptoms that are concerning to you. Forms: Elevated Blood Pressure, Smoking Cessation Education Referrals: AMANDA BARKER MD [ACTIVE STAFF] - Follow up as needed
== END 2019-09-02 11:55 | disposition home or self-care (01) ==
LOC: ER 10:31
DX: H57.89 Other specified disorders of eye and adnexa (principal); R22.0 Localized swelling, mass and lump, head; F17.200 Nicotine dependence, unspecified, uncomplicated; I10 Essential (primary) hypertension; J44.9 Chronic obstructive pulmonary disease, unspecified
CPT/HCPCS: 99283; 96372; J1100

== ENCOUNTER → 2019-12-24 | Outpatient (CLI) | payer SELFPAY ==
--- NOTE | 2019-12-24 11:18 | ER RDC ASSESSMENT REPORT ---
Intake - In the Last 14 days Have you traveled outside [place]?: No Have you been in close contact with someone CONFIRMED: No Worked in Healthcare?: No - Symptoms Subjective Fever(Mcallister feverish): Yes Chills: Yes Muscule Aches: Yes Runny Nose: No Sore Throat: Yes Cough (New or worsening chronic cough): Yes Shortness of breath: Yes Nausea or Vomiting: No Headache: Yes Abdominal Pain: No Diarrhea(3 or more loose stools in last 24 hours): No - Do you have any of the following Chronic lung disease: Asthma or emphysema or COPD: Yes Chronic Lung Disease Comment: Emphysema Cystic Fibrosis: No Diabetes: No High Blood Pressure: No Cardiovascular Disease: No Chronic Kidney Disease: No Chronic Liver Disease: No Chronic blood disorder like Sickle Cell Disease: No Weak immune system due to disease or medication: No Neurologic condition that limits movement: No Developmental delay - Moderate to Severe: No Recent (within past 2 weeks) or current : No Morbid Obesity (>100 pounds over ideal weight): No - Objective Temperature: 96.6 F Pulse Rate: 85 Respiratory Rate: 20 Blood Pressure: 193/95 O2 Sat by Pulse Oximetry: 97 Objective: Patient is a well-appearing 49-year-old female who presents today for COVID-19 screening. Disposition: Home; Selfcare General - General Stated Complaint: Upper respiratory symptoms x3 days Mode of Arrival: Ambulatory Information source: Patient Notes: The patient was evaluated during the global COVID 19 pandemic, and that diagnosis was suspected/considered upon their initial presentation. Their evaluation, treatment, and testing was consistent with current guidelines for patients who present with complaints or symptoms that may be related to COVID 19. - HPI Patient complains to provider of: Upper respiratory symptoms Onset: Other - 3 days Onset/Duration: Gradual, Persistent Quality of pain: Achy Severity: Mild Pain Level: 2 Context: Generalized body aches. Similar symptoms previously: No Recently seen / treated by doctor: No - Related Data Allergies/Adverse Reactions: No Known Allergies Allergy (Unverified 08/26/19 12:52) Past Medical History - Social History Smoking Status: Current Every Day Smoker Cigarette use (# per day): Yes - 1 pack/day Chew tobacco use (# tins/day): No Smoking Education Provided: Yes Frequency of alcohol use: Occasional Drug Abuse: None Occupation: Unemployed Lives with: Family Family History: Reviewed & Not Pertinent Patient has suicidal ideation: No Patient has homicidal ideation: No - Past Medical History Cardiac Medical History: Reports: Hx Hypertension Pulmonary Medical History: Reports: Hx COPD Psychiatric Medical History: Reports: Hx Anxiety, Hx Bipolar Disorder Past Surgical History: Reports: Hx Section Physical Exam - General General appearance: Appears well In distress: None Notes: PHYSICAL EXAMINATION: GENERAL: Well-appearing and in no acute distress. HEAD: Atraumatic, normocephalic. EYES: sclera anicteric, conjunctiva are normal. ENT: nares patent. Moist mucous membranes. NECK: Normal range of motion, supple without lymphadenopathy. LUNGS: CTAB and equal. No wheezes rales or rhonchi. HEART: Regular rate and rhythm without murmurs. EXTREMITIES: Normal range of motion, no pitting edema. No cyanosis. BACK: No midline or CVA tenderness. NEUROLOGICAL: Cranial nerves grossly intact. Normal speech. PSYCH: Normal mood, normal affect. SKIN: Warm, Dry, normal color and turgor, no obvious lesions or rash noted. Diagnostic Results Laboratory Results: Patient advised at this time they are considered a Person Under Investigation (PUI) for the COVID-19 Coronavirus. They have been made aware it is currently taking 8-11 days to receive results, and the Health Department will call to advise them of their result, whether it is POSITIVE or NEGATIVE. Patient Education/Counseling Counseling/Education: Patient presents with upper respiratory symptoms worrisome for possible Covid 19. Patient does not have emergency worring symptoms such as difficulty breathing, shortness of breath, chest pain, pressure, confusion or cyanosis. Patient appears suitable for discharge as they are not of an advanced age, do not have any chronic medical conditions such as diabetes, CAD, immune deficiency, chronic lung disease or chronic kidney disease. Patient's vital signs are stable and patient is nontoxic in appearance. Good return precautions have been discussed with patient, patient verbalized understanding and is agreeable with discharge plan of care at this time. Patient provided COVID 19 discharge instructions to include: As a person under investigation for Covid 19, the [facility] and [facility] Services, division of public health advises you to adhere to the following guidance until your test results are reported to you. If your test result is positive, you will receive additional information from your provider and your local health department at that time. Remain at home until you are cleared by the health provider or public health authorities. Keep a log of visitors to your home, notify any visitors to your home of your isolation status. If you plan to move to a new address or leave the county, notify the local health department in your County. Call your doctor or seek care if you have an urgent medical need. Before seeking medical care, call ahead to get instructions from the provider before arriving at the medical office clinic or hospital. Notify them that you are being tested for the virus that causes Covid 19 so that arrangements can be made, as necessary, to prevent transmission to others in the healthcare setting. Next, notify the local health department in your county. If a medical emergency arises and you need to call 911, inform dispatch and the first responders that you are being tested for the virus that causes Covid 19. Next, notify the local health department in your county. Patient provided education on smoking cessation including: -the negative effects of smoking -the increased health benefits of quitting. Guidance for worsening S/SX: For worsening symptoms, patient has been advised to contact their Primary Care Provider, or go to the nearest Emergency Department. RDC Discharge - Discharge Clinical Impression: COVID-19 Screening URI (upper respiratory infection) Qualifiers: URI type: unspecified URI Qualified Code(s): J06.9 - Acute upper respiratory infection, unspecified Condition: Stable Disposition: Home; Selfcare
[2019-12-24 11:23] VITALS: BP 193/95
== END ==
LOC: RDC 10:49
PROVIDERS: ATTEND Nurse Practitioner Family
DX: J06.9 Acute upper respiratory infection, unspecified (principal); Z20.828 Contact with and (suspected) exposure to other viral communicable diseases; J02.9 Acute pharyngitis, unspecified; R50.9 Fever, unspecified; R05 Cough; J43.9 Emphysema, unspecified; R06.02 Shortness of breath; M79.10 Myalgia, unspecified site; R51 Headache; I10 Essential (primary) hypertension; F17.210 Nicotine dependence, cigarettes, uncomplicated
CPT/HCPCS: 87635; 99211

== ENCOUNTER 2020-01-26 12:43 | Emergency (ER) | payer SELFPAY ==
--- NOTE | 2020-01-26 13:43 | ER Document Report ---
ED Respiratory Problem - General Chief Complaint: Shortness Of Breath Stated Complaint: SHORTNESS OF BREATH Time Seen by Provider: 01/26/20 13:42 Mode of Arrival: Ambulatory Information source: Patient Notes: 49-year-old female past medical history significant for COPD and hypertension presents emergency room complaining of worsening shortness of breath for the past 3 to 4 days. States she gets dizzy when she overexerts. Also complains of intermittent chest pain only with exertion for the past week. Describes it as a burning sensation in the middle of her chest. Currently pain-free., states is currently out of her COPD meds and has been using her daughter's albuterol inhaler without relief. No recent travel, no known COVID exposure. Did have a negative COVID test about 4 weeks ago when she was having flulike symptoms. TRAVEL OUTSIDE OF THE [place] IN LAST 30 DAYS: No - Related Data Allergies/Adverse Reactions: No Known Allergies Allergy (Unverified 08/26/19 12:52) Past Medical History - Social History Smoking Status: Current Every Day Smoker Frequency of alcohol use: Occasional Drug Abuse: None Lives with: Family Family History: Reviewed & Not Pertinent Patient has homicidal ideation: No - Past Medical History Cardiac Medical History: Reports: Hx Hypertension Pulmonary Medical History: Reports: Hx COPD Psychiatric Medical History: Reports: Hx Anxiety, Hx Bipolar Disorder Past Surgical History: Reports: Hx Section Review of Systems - Review of Systems Constitutional: No symptoms reported EENT: No symptoms reported Cardiovascular: Chest pain, Dizziness Respiratory: Short of breath, Wheezing. denies: Sputum, Stridor Gastrointestinal: No symptoms reported Musculoskeletal: No symptoms reported Skin: No symptoms reported Neurological/Psychological: No symptoms reported -: Yes All other systems reviewed and negative Physical Exam - Vital signs Vitals: Temp Resp 97.5 F 24 H 01/26/20 12:43 01/26/20 12:43 - General General appearance: Appears well, Alert In distress: Mild - HEENT Head: Normocephalic, Atraumatic Eyes: Normal Pupils: PERRL - Respiratory Respiratory status: No respiratory distress Chest status: Nontender Breath sounds: Normal Chest palpation: Normal - Cardiovascular Rhythm: Regular Heart sounds: Normal auscultation Murmur: No - Back Back: Normal, Nontender. No: CVA tenderness - Neurological Neuro grossly intact: Yes Cognition: Normal Orientation: AAOx4 Harrington Coma Scale Eye Opening: Spontaneous Harrington Coma Scale Verbal: Oriented Joy Coma Scale Motor: Obeys Commands Harrington Coma Scale Total: 15 Speech: Normal Motor strength normal: LUE, RUE, LLE, RLE Sensory: Normal - Skin Skin Temperature: Warm Skin Moisture: Dry Skin Color: Normal Course - Re-evaluation Re-evalutation: 01/26/20 16:16 Patient is resting comfortably currently asymptomatic. Reviewed lab results, xray and EKG with patient aware of need for admission due to elevated troponin and EKG changes. Patient has requested to leave AGAINST MEDICAL ADVICE. States that she needs to go home and take care of her children before she can be admitted. Patient was counseled on the risks and benefits of leaving AGAINST MEDICAL ADVICE. 01/26/20 16:16 The patient has chosen to leave the facility against medical advice. The relevant issues have been reviewed and discussed with the patient and family at the bedside. At the time of this assessment there is no indication for involuntary commitment. The patient is alert, oriented, and able to express clearly their reasoning for not wanting to remain in the emergency department for further treatment. The patient is not clinically psychotic, intoxicated, and denies and suicidal ideation. Differential or suspected diagnoses based on medical screening exam: Chest pain unknown etiology. The patient is aware of the concerning diagnoses and acknowledges understanding of the reasons for the following recommendations: Loss of life, permanent disability, chronic pain, worsening of condition, cardiac dysfunction, respiratory dysfunction loss of current lifestyle The following recommendations/services were offered and refused: Admission The following risks were explained: , permanent disability, loss of function Clinical impression: Patient is competent to make decisions regarding the medical that is being offered. - Vital Signs Vital signs: Temp Pulse Resp BP Pulse Ox 98.2 F 53 L 24 H 128/90 H 98 01/26/20 16:28 01/26/20 16:28 01/26/20 12:43 01/26/20 16:28 01/26/20 16:28 - Laboratory Result Diagrams: 01/26/20 12:51 01/26/20 12:51 Laboratory results interpreted by me: 01/26/20 01/26/20 12:51 12:51 Est GFR ( Amer) 59 L Est GFR (MDRD) Non-Af 49 L Glucose 121 H NT-Pro-B Natriuret Pep 224 H - Diagnostic Test Radiology reviewed: Reports reviewed - EKG Interpretation by Me Additional EKG results interpreted by me: 01/26/20 14:27 EKG was interpreted by ED physician Dr. Enamorado, No acute STEMI Flipped T waves Discharge - Discharge Clinical Impression: Left against medical advice Chest pain Qualifiers: Chest pain type: unspecified Qualified Code(s): R07.9 - Chest pain, unspecified Dyspnea Qualifiers: Dyspnea type: dyspnea on exertion Qualified Code(s): R06.00 - Dyspnea, unspe cified Condition: Stable Disposition: AGAINST MEDICAL ADVICE Instructions: Chest Pain of Unclear Cause ([facility]), Dyspnea, Nonspecific ([facility]) Additional Instructions: You have requested to leave AGAINST MEDICAL ADVICE you are advised against the risks of leaving AGAINST MEDICAL ADVICE including but not limited to , chronic pain, worsening condition, loss of current lifestyle, respiratory dysfun ction, cardiac dysfunction. The patient has chosen to leave the facility against medical advice. The relevant issues have been reviewed and discussed with the patient and family at the bedside. At the time of this assessment there is no indication for involuntary commitment. The patient is alert, oriented, and able to express clearly their reasoning for not wanting to remain in the emergency department for further treatment. The patient is not clinically psychotic, intoxicated, and denies and suicidal ideation. Differential or suspected diagnoses based on medical screening exam: Chest pain unknown etiology. The patient is aware of the concerning diagnoses and acknowledges understanding of the reasons for the following recommendations: Loss of life, permanent disability, chronic pain, worsening of condition, cardiac dysfunction, respiratory dysfunction loss of current lifestyle The following recommendations/services were offered and refused: Admission The following risks were explained: , permanent disability, loss of function Clinical impression: Patient is competent to make decisions regarding the medical that is being offered.
[2020-01-26 13:48] LABS: ABSOLUTE EOSINOPHILS # (AUTO) 0.2 10^3/uL (0.0-0.6); ABSOLUTE LYMPHOCYTES (AUTO) 2.5 10^3/uL (0.5-4.7); ABSOLUTE MONOCYTES (AUTO) 0.4 10^3/uL (0.1-1.4); ABSOLUTE NEUT (AUTO) 5.9 10^3/uL (1.7-8.2); BASOPHILS % (AUTO) 0.5 % (0-2); EOSINOPHILS % (AUTO) 2.7 % (0-6); HEMATOCRIT 39.1 % (36.0-47.0); HEMOGLOBIN 13.1 g/dL (12.0-15.5); LYMPHOCYTES % (AUTO) 27.8 % (13-45); MEAN CORPUSCULAR HEMOGLOBIN 30.8 pg (27.0-33.4); MEAN CORPUSCULAR HGB CONC 33.6 g/dL (32.0-36.0); MEAN CORPUSCULAR VOLUME 92 fl (80-97); MONOCYTES % (AUTO) 4.2 % (3-13); PLATELET COUNT 235 10^3/uL (150-450); RED BLOOD COUNT 4.26 10^6/uL (3.72-5.28); RED CELL DISTRIBUTION WIDTH 13.3 % (11.5-14.0); SEGMENTED NEUTROPHILS % (AUTO) 64.8 % (42-78); TOTAL CELLS COUNTED % (AUTO) 100 %; WHITE BLOOD COUNT 9.2 10^3/uL (4.0-10.5)
[2020-01-26 13:56] LABS: ALBUMIN 3.9 g/dL (3.5-5.0); ALKALINE PHOSPHATASE 89 U/L (38-126); ANION GAP 7 (5-19); ASPARTATE AMINO TRANSFERASE 19 U/L (14-36); BILIRUBIN,TOTAL 0.4 mg/dL (0.2-1.3); BLOOD UREA NITROGEN 16 mg/dL (7-20); CALCIUM 9.3 mg/dL (8.4-10.2); CARBON DIOXIDE 24 mmol/L (22-30); CHLORIDE 107 mmol/L (98-107); GLUCOSE 121 mg/dL (75-110); POTASSIUM 4.8 mmol/L (3.6-5.0); TOTAL PROTEIN 6.9 g/dL (6.3-8.2)
[2020-01-26] MEDS ORDERED: METHYLPREDNISOLONE INJ 125 MG/2 ML SDV IM ONE (14:03)
[2020-01-26 14:12] LABS: CREATINE KINASE MB 0.58 ng/mL (<4.55)
[2020-01-26 14:15] LABS: TROPONIN I 0.05 ng/mL
--- NOTE | 2020-01-26 14:17 | RADIOLOGY REPORT (SQ) ---
EXAM DESCRIPTION: CHEST SINGLE VIEW IMAGES COMPLETED DATE/TIME: 01/26/2020 2:03 pm REASON FOR STUDY: SOB COMPARISON: None. EXAM PARAMETERS: NUMBER OF VIEWS: One view. TECHNIQUE: Single frontal radiographic view of the chest acquired. RADIATION DOSE: NA LIMITATIONS: None. FINDINGS: LUNGS AND PLEURA: No opacities, masses or pneumothorax. No pleural effusion. MEDIASTINUM AND HILAR STRUCTURES: No masses. Contour normal. HEART AND VASCULAR STRUCTURES: Heart normal in size. Normal vasculature. BONES: No acute findings. HARDWARE: None in the chest. OTHER: No other significant finding. IMPRESSION: NO ACUTE RADIOGRAPHIC FINDING IN THE CHEST. TECHNICAL DOCUMENTATION: JOB ID: [id number] 2010 [employer]- All Rights Reserved Reading location - IP/workstation name: [email or web address]
[2020-01-26] MEDS ORDERED: ASPIRIN 81 MG TABLET, CHEWABLE PO ONE (14:21)
[2020-01-26 16:56] VITALS: BP 128/90
--- NOTE | 2020-01-26 18:51 | EKG REPORT ---
SEVERITY:- ABNORMAL ECG - SINUS RHYTHM ABNORMAL T, CONSIDER ISCHEMIA, LATERAL LEADS : Confirmed by: Xiao Rodrigues MD 26-Jan-2020 18:49:33
== END 2020-01-26 16:15 | disposition left against medical advice (07) ==
LOC: ER 12:43
DX: R07.9 Chest pain, unspecified (principal); R06.00 Dyspnea, unspecified; R06.02 Shortness of breath; F17.200 Nicotine dependence, unspecified, uncomplicated; J44.9 Chronic obstructive pulmonary disease, unspecified; I10 Essential (primary) hypertension
CPT/HCPCS: 93005; 99284; 96372; 36415; 82553; 85025; 80053; 84484; 83880; 71045; 93010; J2930

== ENCOUNTER 2020-01-27 00:57 | Observation (INO) | payer SELFPAY ==
[2020-01-27 01:34] LABS: HEMATOCRIT 40.6 % (36.0-47.0); HEMOGLOBIN 14.1 g/dL (12.0-15.5); MEAN CORPUSCULAR HEMOGLOBIN 31.7 pg (27.0-33.4); MEAN CORPUSCULAR HGB CONC 34.6 g/dL (32.0-36.0); MEAN CORPUSCULAR VOLUME 91 fl (80-97); PLATELET COUNT 270 10^3/uL (150-450); RED BLOOD COUNT 4.45 10^6/uL (3.72-5.28); RED CELL DISTRIBUTION WIDTH 13.7 % (11.5-14.0); WHITE BLOOD COUNT 16.2 10^3/uL (4.0-10.5)
[2020-01-27 01:48] LABS: ALBUMIN 4.4 g/dL (3.5-5.0); ALKALINE PHOSPHATASE 110 U/L (38-126); ANION GAP 11 (5-19); ASPARTATE AMINO TRANSFERASE 22 U/L (14-36); BILIRUBIN,TOTAL 0.5 mg/dL (0.2-1.3); BLOOD UREA NITROGEN 16 mg/dL (7-20); CALCIUM 9.9 mg/dL (8.4-10.2); CARBON DIOXIDE 20 mmol/L (22-30); CHLORIDE 107 mmol/L (98-107); GLUCOSE 150 mg/dL (75-110); POTASSIUM 4.9 mmol/L (3.6-5.0); TOTAL PROTEIN 7.6 g/dL (6.3-8.2)
[2020-01-27 01:51] LABS: ABSOLUTE LYMPHOCYTES# (MANUAL) 0.8 10^3/uL (0.5-4.7); BASOPHILS % (MANUAL) 0 % (0-2); EOSINOPHILS % (MANUAL) 0 % (0-6); LYMPHOCYTES % (MANUAL) 5 % (13-45); MONOCYTES % (MANUAL) 0 % (3-13); RBC MORPHOLOGY COMMENT NORMO-CYTIC/CHROMIC; SEGMENTED NEUTROPHILS % (MAN) 95 % (42-78); TOTAL CELLS COUNTED 100
[2020-01-27 01:52] LABS: PLATELET COMMENT ADEQUATE
--- NOTE | 2020-01-27 02:09 | ER Document Report ---
ED General - General Chief Complaint: Chest Pain Stated Complaint: SHORTNESS OF BREATH/CHEST PAIN Time Seen by Provider: 01/27/20 01:51 Mode of Arrival: Ambulatory Information source: Patient Notes: 49-year-old female patient presenting to the emergency department chief complaint of chest pain and shortness of breath. Patient was seen in this emergency department yesterday afternoon. She had a cardiac work-up done and was recommended admission to the hospital. Patient had to go home and make arrangements for HER-2 children as she is a single mother. Patient returns now stating that her chest pain has improved but her shortness of breath remains. The shortness of breath has been ongoing for the last 4 days. She does report a history of COPD and she is a smoker but she states the shortness of breath is worse. TRAVEL OUTSIDE OF THE [place] IN LAST 30 DAYS: No - Related Data Allergies/Adverse Reactions: No Known Allergies Allergy (Verified 01/27/20 01:35) Past Medical History - General Information source: Patient - Social History Smoking Status: Current Every Day Smoker - 1/2 pack Frequency of alcohol use: None Drug Abuse: None Family History: Malignancy - Breast cancer in Mother Patient has homicidal ideation: No - Past Medical History Cardiac Medical History: Reports: Hx Hypertension Pulmonary Medical History: Reports: Hx COPD Psychiatric Medical History: Reports: Hx Anxiety, Hx Bipolar Disorder Past Surgical History: Reports: Hx Section Review of Systems - Review of Systems Constitutional: denies: Chills, Fever EENT: No symptoms reported Cardiovascular: Chest pain Respiratory: Short of breath Gastrointestinal: No symptoms reported Genitourinary: No symptoms reported Female Genitourinary: No symptoms reported Musculoskeletal: No symptoms reported Skin: No symptoms reported Hematologic/Lymphatic: No symptoms reported Neurological/Psychological: No symptoms reported Physical Exam - Vital signs Vitals: Temp Resp BP Pulse Ox 97.8 F 18 143/84 H 98 01/27/20 01:05 01/27/20 01:05 01/27/20 01:05 01/27/20 01:05 - Notes Notes: PHYSICAL EXAMINATION: GENERAL: Well-appearing, well-nourished. HEAD: Atraumatic, normocephalic. EYES: Pupils equal round and reactive to light, extraocular movements intact, conjunctiva are normal. ENT: Nares patent, oropharynx clear without exudates. Moist mucous membranes. NECK: Normal range of motion, supple without lymphadenopathy LUNGS: Breath sounds clear to auscultation bilaterally and equal. No wheezes rales or rhonchi. HEART: Regular rate and rhythm without murmurs ABDOMEN: Soft, nontender, nondistended abdomen. No guarding, no rebound. No masses appreciated. Female : deferred Musculoskeletal: Normal range of motion, no pitting or edema. No cyanosis. NEUROLOGICAL: Cranial nerves grossly intact. Normal speech, normal gait. Normal sensory, motor exams PSYCH: Normal mood, normal affect. SKIN: Warm, Dry, normal turgor, no rashes or lesions noted. Course - Re-evaluation Re-evalutation: Laboratory 01/27/20 01/27/20 01/27/20 01:10 01:10 01:10 WBC 16.2 H RBC 4.45 Hgb 14.1 Hct 40.6 MCV 91 MCH 31.7 MCHC 34.6 RDW 13.7 Plt Count 270 Lymph % (Auto) Not Reportable Drew % (Auto) Not Reportable Eos % (Auto) Not Reportable Baso % (Auto) Not Reportable Absolute Neuts (auto) Not Reportable Absolute Lymphs (auto) Not Reportable Absolute Monos (auto) Not Reportable Absolute Eos (auto) Not Reportable Absolute Basos (auto) Not Reportable Total Counted 100 Seg Neutrophils % Not Reportable Seg Neuts % (Manual) 95 H Lymphocytes % (Manual) 5 L Monocytes % (Manual) 0 L Eosinophils % (Manual) 0 Basophils % (Manual) 0 Abs Neuts (Manual) 15.4 H Abs Lymphs (Manual) 0.8 Abs Monocytes (Manual) 0.0 L Absolute Eos (Manual) 0.0 Abs Basophils (Manual) 0.0 Platelet Comment ADEQUATE RBC Morph Comment NORMO-CYTIC/CHROMIC Sodium 137.7 Potassium 4.9 Chloride 107 Carbon Dioxide 20 L Anion Gap 11 BUN 16 Creatinine 0.94 Est GFR ( Amer) > 60 Est GFR (MDRD) Non-Af > 60 Glucose 150 H Calcium 9.9 Total Bilirubin 0.5 Direct Bilirubin 0.0 Neonat Total Bilirubin Not Reportable Neonat Direct Bilirubin Not Reportable Neonat Indirect Bili Not Reportable AST 22 ALT 21 Alkaline Phosphatase 110 Troponin I 0.055 NT-Pro-B Natriuret Pep Total Protein 7.6 Albumin 4.4 01/27/20 01:10 WBC RBC Hgb Hct MCV MCH MCHC RDW Plt Count Lymph % (Auto) Drew % (Auto) Eos % (Auto) Baso % (Auto) Absolute Neuts (auto) Absolute Lymphs (auto) Absolute Monos (auto) Absolute Eos (auto) Absolute Basos (auto) Total Counted Seg Neutrophils % Seg Neuts % (Manual) Lymphocytes % (Manual) Monocytes % (Manual) Eosinophils % (Manual) Basophils % (Manual) Abs Neuts (Manual) Abs Lymphs (Manual) Abs Monocytes (Manual) Absolute Eos (Manual) Abs Basophils (Manual) Platelet Comment RBC Morph Comment Sodium Potassium Chloride Carbon Dioxide Anion Gap BUN Creatinine Est GFR ( Amer) Est GFR (MDRD) Non-Af Glucose Calcium Total Bilirubin Direct Bilirubin Neonat Total Bilirubin Neonat Direct Bilirubin Neonat Indirect Bili AST ALT Alkaline Phosphatase Troponin I NT-Pro-B Natriuret Pep 794 H Total Protein Albumin Troponin unchanged from previous visit 12 hours ago. Her BNP has tripled. CTA of the chest shows no acute findings to include pulmonary embolus. Case discussed with attending physician, Dr. Rodney. Will call cardiology to try to get patient admitted for heart failure work-up and echocardiogram. 01/27/20 04:56 Spoke with luster repairer, Dr. Estrada regarding this patient. He is in agreement with patient being admitted for echocardiogram. 01/27/20 05:17 Patient accepted for admission by Dr. Reddy. Patient will be an observation status and will go to the telemetry floor. - Vital Signs Vital signs: Temp Pulse Resp BP Pulse Ox 97.8 F 24 H 125/66 100 01/27/20 01:07 01/27/20 03:37 01/27/20 03:37 01/27/20 03:37 - Laboratory Result Diagrams: 01/27/20 01:10 01/27/20 01:10 Laboratory results interpreted by me: 01/27/20 01/27/20 01/27/20 01:10 01:10 01:10 WBC 16.2 H Seg Neuts % (Manual) 95 H Lymphocytes % (Manual) 5 L Monocytes % (Manual) 0 L Abs Neuts (Manual) 15.4 H Abs Monocytes (Manual) 0.0 L Carbon Dioxide 20 L Glucose 150 H NT-Pro-B Natriuret Pep 794 H - Diagnostic Test Radiology reviewed: Image reviewed, Reports reviewed - EKG Interpretation by Me EKG shows normal: Sinus rhythm Rate: Normal Rhythm: NSR When compared to previous EKG there are: No significant change Discharge - Discharge Clinical Impression: Shortness of breath, Elevated brain natriuretic peptide (BNP) level, Elevated troponin Chest pain Qualifiers: Chest pain type: unspecified Qualified Code(s): R07.9 - Chest pain, unspecified Dyspnea Qualifiers: Dyspnea type: unspecified Qualified Code(s): R06.00 - Dyspnea, unspecified Condition: Stable Disposition: ADMITTED OBSERVATION Admitting Provider: Barry (Hospitalist) Unit Admitted: Telemetry
[2020-01-27] MEDS ORDERED: PROCHLORPERAZINE EDISYLATE INJ 10 MG/2 ML VIAL IV ONE (03:08)
--- NOTE | 2020-01-27 04:03 | RADIOLOGY REPORT (SQ) ---
EXAM DESCRIPTION: CT CHEST ANGIOGRAPHY WITHOUT THEN WITH IV CONTRAST COMPLETED DATE/TME: 01/27/2020 02:40 CLINICAL HISTORY: 49 years Female, shortness of breath, chest pain Comparison: CR, same day. Technique: IV contrast. Coronal and sagittal reformat. 3d reconstruction. This exam was performed according to our departmental dose-optimization program, which includes automated exposure control, adjustment of the mA and/or kV according to patient size and/or use of iterative reconstruction technique.[facility]: Dose Right [facility]: CareDose [facility]: Dose Right [facility]: Teradose 4D [facility]: [employer] LIMITATIONS: None Findings: No pulmonary embolus. No right ventricular strain. Clear lungs. Coronary arterial calcification. Atherosclerotic vascular disease. Colonic diverticulosis. Inferior neck, axillae, mediastinum, airway, lymphatics, heart, vasculature, upper abdomen, and musculoskeleton appear otherwise unremarkable. Impression: No pulmonary embolus. No acute cardiopulmonary findings.
[2020-01-27] MEDS ORDERED: ACETAMINOPHEN 325 MG TABLET PO PRN (05:12)
[2020-01-27] MEDS ORDERED: MAG HYDROX/AL HYDROX/SIMETH SUSP 30 ML UDCUP PO PRN (05:12)
[2020-01-27] MEDS ORDERED: FUROSEMIDE INJ/PF 40 MG/4 ML SDV IV ONE (05:15)
[2020-01-27 05:36] LABS: CHOLESTEROL 203.62 mg/dL (0-200); TRIGLYCERIDES 82 mg/dL (<150)
[2020-01-27 05:57] LABS: DIRECT LDL 104 mg/dL (<100)
[2020-01-27] MEDS ORDERED: HEPARIN SOD (PORCINE) 5,000 UNIT/ML 1 ML VIAL SUBCUT SCH (06:00)
[2020-01-27] MEDS ORDERED: POTASSIUM CHLORIDE 10 MEQ TABLET.ER PO ONE (06:00)
[2020-01-27] MEDS ORDERED: NICOTINE 14 MG/24 HR PATCH.TD24 TD PRN (06:29)
[2020-01-27] MEDS ORDERED: IPRATROPIUM/ALBUTEROL 0.5-2.5 MG/3 ML AMPUL NEB PRN (06:35)
--- NOTE | 2020-01-27 06:37 | PDOC H&P ---
History of Present Illness Admission Date/PCP: 01/27/20 05:25 Patient complains of: Shortness of breath History of Present Illness: ADWOA PHILIP is a 49 year old female with a past medical history of morbid obesity, hypertension, depression, anxiety, tobacco dependence and medication noncompliance. She presents with 2 weeks of shortness of breath exacerbated by exertion and a mildly productive cough with clear sputum. Patient was seen in the emergency department 24 hours ago and recommended to remain for admission but declined leaving AGAINST MEDICAL ADVICE but now returns. She denies chest pain, orthopnea or leg swelling. She is unable to identify alleviating factors. In the emergency department she is found to have an indeterminate troponin and a BNP of 800. CTA chest is unremarkable and is referred to the hospitalist for admission. Patient admits to medication noncompliance for years but denies new medication or [id number] medication use. Past Medical History Cardiac Medical History: Reports: Hypertension Pulmonary Medical History: Reports: Chronic Obstructive Pulmonary Disease (COPD) Endocrine Medical History: Reports: Obesity Psychiatric Medical History: Reports: Bipolar Disorder Past Surgical History Past Surgical History: Reports: Section Social History Information Source: Patient Smoking Status: Current Every Day Smoker - 1/2 pack Frequency of Alcohol Use: Social Hx Recreational Drug Use: No Drugs: None - Advance Directive Resuscitation Status: Full Code Family History Family History: Malignancy - Breast cancer in Mother Parental Family History Reviewed: Yes Children Family History Reviewed: Yes Sibling(s) Family History Reviewed.: Yes Medication/Allergy Home Medications: No Home Medications 01/27/20 Allergies/Adverse Reactions: No Known Allergies Allergy (Verified 01/27/20 01:35) Review of Systems Constitutional: ABSENT: chills, fever(s), headache(s), weight gain, weight loss Eyes: ABSENT: visual disturbances Ears: ABSENT: hearing changes Cardiovascular: ABSENT: chest pain, dyspnea on exertion, edema, orthropnea, palpitations Respiratory: ABSENT: cough, hemoptysis Gastrointestinal: ABSENT: abdominal pain, constipation, diarrhea, hematemesis, hematochezia, nausea, vomiting Genitourinary: ABSENT: dysuria, hematuria Musculoskeletal: ABSENT: joint swelling Integumentary: ABSENT: rash, wounds Neurological: ABSENT: abnormal gait, abnormal speech, confusion, dizziness, focal weakness, syncope Psychiatric: ABSENT: anxiety, depression, homidical ideation, suicidal ideation Endocrine: ABSENT: cold intolerance, heat intolerance, polydipsia, polyuria Hematologic/Lymphatic: ABSENT: easy bleeding, easy bruising Physical Exam Vital Signs: Temp Pulse Resp BP Pulse Ox 97.8 F 24 H 125/66 100 01/27/20 01:07 01/27/20 03:37 01/27/20 03:37 01/27/20 03:37 Intake & Output 01/25/20 01/26/20 01/27/20 11:59 11:59 11:59 Weight 90.7 kg General appearance: PRESENT: no acute distress, well-developed, well-nourished Head exam: PRESENT: atraumatic, normocephalic Eye exam: PRESENT: conjunctiva pink, EOMI, PERRLA. ABSENT: scleral icterus Ear exam: PRESENT: normal external ear exam Mouth exam: PRESENT: moist, tongue midline Neck exam: ABSENT: carotid bruit, JVD, lymphadenopathy, thyromegaly Respiratory exam: PRESENT: clear to auscultation barbie. ABSENT: rales, rhonchi, wheezes Cardiovascular exam: PRESENT: RRR. ABSENT: diastolic murmur, rubs, systolic murmur Pulses: PRESENT: normal dorsalis pedis pul Vascular exam: PRESENT: normal capillary refill GI/Abdominal exam: PRESENT: normal bowel sounds, soft. ABSENT: distended, guarding, mass, organolmegaly, rebound, tenderness Rectal exam: PRESENT: deferred Extremities exam: PRESENT: full ROM. ABSENT: calf tenderness, clubbing, pedal edema Neurological exam: PRESENT: alert, awake, oriented to person, oriented to place, oriented to time, oriented to situation, CN II-XII grossly intact. ABSENT: motor sensory deficit Psychiatric exam: PRESENT: appropriate affect, normal mood. ABSENT: homicidal ideation, suicidal ideation Skin exam: PRESENT: dry, intact, warm. ABSENT: cyanosis, rash Results Laboratory Results: 01/27/20 01:10 01/27/20 01:10 01/27/20 01/27/20 01/27/20 01:10 01:10 01:10 WBC 16.2 H RBC 4.45 Hgb 14.1 Hct 40.6 MCV 91 MCH 31.7 MCHC 34.6 RDW 13.7 Plt Count 270 Seg Neutrophils % Not Reportable Sodium 137.7 Potassium 4.9 Chloride 107 Carbon Dioxide 20 L Anion Gap 11 BUN 16 Creatinine 0.94 Est GFR ( Amer) > 60 Glucose 150 H Calcium 9.9 Total Bilirubin 0.5 AST 22 Alkaline Phosphatase 110 Total Protein 7.6 Albumin 4.4 Triglycerides Cholesterol LDL Cholesterol Direct VLDL Cholesterol HDL Cholesterol TSH 0.59 01/27/20 01:10 WBC RBC Hgb Hct MCV MCH MCHC RDW Plt Count Seg Neutrophils % Sodium Potassium Chloride Carbon Dioxide Anion Gap BUN Creatinine Est GFR ( Amer) Glucose Calcium Total Bilirubin AST Alkaline Phosphatase Total Protein Albumin Triglycerides 82 Cholesterol 203.62 H LDL Cholesterol Direct 104 H VLDL Cholesterol 16.0 HDL Cholesterol 62 TSH 01/27/20 01/27/20 01/27/20 01:10 01:10 01:10 CK-MB (CK-2) 1.03 Troponin I 0.055 NT-Pro-B Natriuret Pep 794 H Assessment and Plan - Diagnosis (1) Congestive heart failure Qualifiers: Heart failure type: systolic Heart failure chronicity: acute Qualified Code(s): I50.21 - Acute systolic (congestive) heart failure Is this a current diagnosis for this admission?: Yes Plan: CHF care site deployed, trial IV Lasix, follow-up 2D echo. (2) Bronchitis Is this a current diagnosis for this admission?: Yes Plan: Trial albuterol with Atrovent, tobacco cessation counseling (3) Hypertension Is this a current diagnosis for this admission?: Yes Plan: Coreg when CHF better compensated. Education (4) Depression with anxiety Is this a current diagnosis for this admission?: Yes Plan: Trial Celexa (5) Tobacco dependency Is this a current diagnosis for this admission?: Yes Plan: Tobacco cessation counseling performed nicotine replacement options discussed. - Time Time Spent with patient: 25-34 minutes
[2020-01-27] MEDS ORDERED: IPRATROPIUM/ALBUTEROL 0.5-2.5 MG/3 ML AMPUL NEB SCH (08:00)
--- NOTE | 2020-01-27 08:45 | EKG REPORT ---
SEVERITY:- ABNORMAL ECG - SINUS RHYTHM NONSPECIFIC T ABNORMALITIES, ANT-LAT LEADS : Confirmed by: Xiao Rodrigues MD 27-Jan-2020 08:44:10
[2020-01-27] MEDS ORDERED: DOCUSATE SODIUM 100 MG CAPSULE PO SCH (10:00)
[2020-01-27] MEDS ORDERED: ASPIRIN 81 MG TABLET, ENT COATED PO SCH (10:00)
[2020-01-27] MEDS ORDERED: CARVEDILOL 3.125 MG TABLET PO SCH (10:00)
[2020-01-27] MEDS ORDERED: CITALOPRAM HYDROBROMIDE 20 MG TABLET PO SCH (10:00)
--- NOTE | 2020-01-27 11:44 | PDOC CONSULTATION ---
Consultation Consult Date: 01/27/20 Attending physician:: EMILIA MCKNIGHT Provider Consulted: DENA KERNS Consult reason:: Chest pain and dyspnea. History of Present Illness Admission Date/PCP: 01/27/20 05:25 History of Present Illness: ADWOA PHILIP is a 49 year old female with history of hypertension, COPD, unknown lipids, tobacco use of 1/2 to 1 PPD since 13 years of age and family hx of stroke in her father who is consulted to our service for evaluation of chest pain and BAXTER. The patient began with chest discomfort 1-2 weeks ago when she noticed a burning sensation, localized to the substernal region without radiation, lasting anywhere from 5 minutes to 30 minutes, triggered by minimal exertion such as walking at a normal pace to her neighbor's house, relieved by rest and associated with significant dyspnea, dizziness and occasional diaphoresis. She denied palpitations, syncope and presyncope. She was initially evaluated in our ED on JANUARY 23 at which time her troponin was indeterminate and her proBNP was slightly elevated, she was recommended to be admitted but she left AMA as she had to take care of her children. She returned early today due to recurrence of index symptoms. This morning she is found resting comfortably in her bed and denies recurrence of index symptoms however she has remained at rest since admission. She specifically denies CP, SOB, BAXTER, PND, LE edema, palpitations, dizziness, lightheadedness, syncope and presyncope. Her ekg shows NSR without diagnostic ischemic changes. Past Medical History Cardiac Medical History: Reports: Hypertension Pulmonary Medical History: Reports: Chronic Obstructive Pulmonary Disease (COPD) Endocrine Medical History: Reports: Obesity GI Medical History: Reports: Gastroesophageal Reflux Disease Psychiatric Medical History: Reports: Bipolar Disorder Past Surgical History Past Surgical History: Reports: Section Social History Smoking Status: Current Every Day Smoker - 1/2 pack Frequency of Alcohol Use: Social Hx Recreational Drug Use: No Drugs: None - Advance Directive Resuscitation Status: Full Code Family History Family History: Malignancy - Breast cancer in Mother Parental Family History Reviewed: Yes Children Family History Reviewed: Yes Sibling(s) Family History Reviewed.: Yes Medication/Allergy Home Medications: No Home Medications 01/27/20 Allergies/Adverse Reactions: No Known Allergies Allergy (Verified 01/27/20 01:35) Physical Exam Vital Signs: Temp Pulse Resp BP Pulse Ox 98.1 F 70 18 131/73 H 99 05/23/20 08:00 01/27/20 09:04 01/27/20 09:04 01/27/20 08:00 01/27/20 09:04 Intake & Output 01/26/20 01/27/20 01/28/20 06:59 06:59 06:59 Weight 84.6 kg General appearance: PRESENT: no acute distress, disheveled, well-developed, well-nourished Head exam: PRESENT: atraumatic, normocephalic Neck exam: ABSENT: carotid bruit, JVD, lymphadenopathy, thyromegaly Respiratory exam: PRESENT: clear to auscultation barbie. ABSENT: rales, rhonchi, wheezes Cardiovascular exam: PRESENT: RRR. ABSENT: diastolic murmur, rubs, systolic murmur Pulses: PRESENT: normal dorsalis pedis pul GI/Abdominal exam: PRESENT: normal bowel sounds, soft. ABSENT: distended, guarding, mass, organolmegaly, rebound, tenderness Extremities exam: PRESENT: full ROM. ABSENT: calf tenderness, clubbing, pedal edema Results Laboratory Results: 01/27/20 01:10 01/27/20 01:10 01/27/20 01/27/20 01/27/20 01:10 01:10 01:10 WBC 16.2 H RBC 4.45 Hgb 14.1 Hct 40.6 MCV 91 MCH 31.7 MCHC 34.6 RDW 13.7 Plt Count 270 Seg Neutrophils % Not Reportable Sodium 137.7 Potassium 4.9 Chloride 107 Carbon Dioxide 20 L Anion Gap 11 BUN 16 Creatinine 0.94 Est GFR ( Amer) > 60 Glucose 150 H Calcium 9.9 Total Bilirubin 0.5 AST 22 Alkaline Phosphatase 110 Total Protein 7.6 Albumin 4.4 Triglycerides Cholesterol LDL Cholesterol Direct VLDL Cholesterol HDL Cholesterol TSH 0.59 01/27/20 01:10 WBC RBC Hgb Hct MCV MCH MCHC RDW Plt Count Seg Neutrophils % Sodium Potassium Chloride Carbon Dioxide Anion Gap BUN Creatinine Est GFR ( Amer) Glucose Calcium Total Bilirubin AST Alkaline Phosphatase Total Protein Albumin Triglycerides 82 Cholesterol 203.62 H LDL Cholesterol Direct 104 H VLDL Cholesterol 16.0 HDL Cholesterol 62 TSH 01/27/20 01/27/20 01/27/20 01:10 01:10 01:10 CK-MB (CK-2) 1.03 Troponin I 0.055 NT-Pro-B Natriuret Pep 794 H Impressions: 01/27/20 01:10 01/27/20 01:10 MCV 91 fl (80-97) 01/27/20 01:10 MCH 31.7 pg (27.0-33.4) 01/27/20 01:10 MCHC 34.6 g/dL (32.0-36.0) 01/27/20 01:10 RDW 13.7 % (11.5-14.0) 01/27/20 01:10 Seg Neutrophils % Not Reportable 01/27/20 01:10 Chloride 107 mmol/L (98-107) 01/27/20 01:10 Carbon Dioxide 20 mmol/L (22-30) L 01/27/20 01:10 Anion Gap 11 (5-19) 01/27/20 01:10 Est GFR ( Amer) > 60 (>60) 01/27/20 01:10 Glucose 150 mg/dL (75-110) H 01/27/20 01:10 Calcium 9.9 mg/dL (8.4-10.2) 01/27/20 01:10 Total Bilirubin 0.5 mg/dL (0.2-1.3) 01/27/20 01:10 AST 22 U/L (14-36) 01/27/20 01:10 Alkaline Phosphatase 110 U/L (38-126) 01/27/20 01:10 Total Protein 7.6 g/dL (6.3-8.2) 01/27/20 01:10 Albumin 4.4 g/dL (3.5-5.0) 01/27/20 01:10 Triglycerides 82 mg/dL (<150) 01/27/20 01:10 Cholesterol 203.62 mg/dL (0-200) H 01/27/20 01:10 LDL Cholesterol Direct 104 mg/dL (<100) H 01/27/20 01:10 VLDL Cholesterol 16.0 mg/dL (10-31) 01/27/20 01:10 HDL Cholesterol 62 mg/dL (>40) 01/27/20 01:10 TSH 0.59 uIU/mL (0.47-4.68) 01/27/20 01:10 01/27/20 01/27/20 01/27/20 01:10 01:10 01:10 CK-MB (CK-2) 1.03 Troponin I 0.055 NT-Pro-B Natriuret Pep 794 H Current Medication List Generic Name Dose Route Start Last Admin Trade Name Freq PRN Reason Stop Dose Admin Acetaminophen 650 mg 01/27/20 05:12 Tylenol 325 Mg Tablet PO 02/26/20 05:11 Q4HP PRN pain or temp greater than 101F Al Hydrox/Mg Hydrox/Simethicone 30 ml 01/27/20 05:12 Maalox Plus Susp 30 Udcup PO 02/26/20 05:11 Q4HP PRN HEARTBURN Albuterol/Ipratropium 3 ml 01/27/20 08:00 01/27/20 09:01 Duoneb 3 Ml Ampul NEB 02/26/20 07:59 3 ml RTQ12 STEPHEN Administration Albuterol/Ipratropium 3 ml 01/27/20 06:35 Duoneb 3 Ml Ampul NEB 02/26/20 06:34 [id number] PRN SHORTNESS OF BREATH Aspirin 81 mg 01/27/20 10:00 01/27/20 10:57 Ecotrin 81 Mg Ec Tablet PO 02/26/20 09:59 81 mg DAILY STEPHEN Administration Carvedilol 3.125 mg 01/27/20 10:00 01/27/20 10:57 Coreg 3.125 Mg Tablet PO 02/26/20 09:59 3.125 mg Q12 STEPHEN Administration Citalopram Hydrobromide 20 mg 01/27/20 10:00 01/27/20 10:57 Celexa 20 Mg Tablet PO 02/26/20 09:59 20 mg DAILY STEPHEN Administration Docusate Sodium 100 mg 01/27/20 10:00 01/27/20 10:57 Colace 100 Mg Capsule PO 02/26/20 09:59 100 mg DAILY STEPHEN Administration Heparin Sodium (Porcine) 5,000 unit 01/27/20 06:00 01/27/20 05:55 Heparin Inj 5,000 Units/Ml 1 Ml Vial SUBCUT 02/26/20 05:59 5,000 unit Q8 STEPHEN Administration Nicotine 1 each 01/27/20 06:29 Nicoderm 14 Mg/24 Hr Transdermal Patch TD 02/26/20 06:28 DAILYP PRN WITHDRAWAL SYMPTOMS Potassium Chloride 20 meq 01/27/20 18:00 Klor-Con 10 Meq Tablet Er PO 02/26/20 17:59 Q12A STEPHEN Sodium Chloride 2.5 ml 01/27/20 06:00 01/27/20 06:31 Saline Flush 2.5 Ml Monoject Prefil Syrin IV 02/26/20 05:59 Not Given Q8 STEPHEN Discontinued Medications Generic Name Dose Route Start Last Admin Trade Name Freq PRN Reason Stop Dose Admin Furosemide 40 mg 01/27/20 05:15 01/27/20 05:34 Lasix Inj/Pf 40 Mg/4 Ml Sdv IV 01/27/20 05:16 40 mg NOW ONE Administration Potassium Chloride 20 meq 01/27/20 06:00 01/27/20 05:55 Klor-Con 10 Meq Tablet Er PO 01/27/20 06:01 20 meq NOW ONE Administration Prochlorperazine Edisylate 10 mg 01/27/20 03:08 01/27/20 03:37 Compazine Inj 10 Mg/2 Ml Vial IV 01/27/20 03:09 10 mg NOW ONE Administration Assessment & Plan - Diagnosis (1) Unstable angina Is this a current diagnosis for this admission?: Yes Plan: 49y/o female with cardiac risk factors of tobacco use, hypertension, sedentary lifestyle who was admitted with a 2 week history of chest pain consistent with unstable angina in the setting of an indeterminate troponin and rising proBNP but no clinical or radiological evidence of heart failure. Although her troponins are elevated, they are in the indeterminate range and non-diagnostic for NSTEMI, I wonder whether the patient had a coronary event 1-2 weeks ago and now we are seeing the downtrending of the cardiac enzymes particularly with her elevated proBNP and no evidence of HF. At this point the patient does not have evidence of HF and her elevated proBNP may be secondary to her angina therefore no diuresis is needed at this point. Recommendation: -Agree with echocardiogram to assess for structural heart disease particularly to assess LVSF and regional wall motion. -Agree with low dose coreg for now. -Continue trending troponin. -Fasting LFT's and lipids. -Start high intensity statin, atrovastatin 80 mg qHS. -Enteric coated aspirin 81mg qd. -Start Imdur 30mg, 1/2 tab daily. -S/L NTG prn for chest pain. -Cardiac telemetry. -Low sodium/cardiac diet. -Nuclear stress test vs [facility] prior to discharge. (2) Elevated brain natriuretic peptide (BNP) level Plan: See #1 above for recommendations. (3) Hypertension Is this a current diagnosis for this admission?: Yes Plan: Her BP is essentially at goal.
[2020-01-27 13:42] VITALS: BP 122/59
[2020-01-27 14:50] LABS: URINE AMPHETAMINES SCREEN NEGATIVE; URINE BARBITURATES SCREEN NEGATIVE; URINE BENZODIAZEPINES SCREEN NEGATIVE; URINE MARIJUANA (THC) SCREEN NEGATIVE; URINE METHADONE SCREEN NEGATIVE; URINE PHENCYCLIDINE SCREEN NEGATIVE
[2020-01-27 14:57] LABS: URINE COCAINE SCREEN UNCONFIRMED POSITIVE
--- NOTE | 2020-01-27 16:09 | Left Against Medical Advice ---
Against Medical Advice Admission Date/Time: 01/27/20 05:25 Primary Care Provider: Date of Patient Emigration: 01/27/20 - Diagnosis: (1) Bronchitis Is this a current diagnosis for this admission?: Yes (2) Chest pain Is this a current diagnosis for this admission?: Yes - Summary: Summary: Please see Admission and Progress Notes as well. ADWOA PHILIP is a 49 F, who LEFT AGAINST MEDICAL ADVICE. The Patient was admitted on 01/27/20 05:25. Based on her work-up it looks like she could benefit from a cardiac evaluation, but I think her acute presentation was more consistent with a bronchitis. However, before any further evaluation could be done, the patient left the hospital AGAINST MEDICAL ADVICE.
[2020-01-27] MEDS ORDERED: POTASSIUM CHLORIDE 10 MEQ TABLET.ER PO SCH (18:00)
== END 2020-01-27 13:30 | disposition left against medical advice (07) ==
LOC: ER 00:57 → EH 05:25 → 4S 06:29
PROVIDERS: ADMIT Internal Medicine; ATTEND Internal Medicine
DX: J40 Bronchitis, not specified as acute or chronic (principal); R07.9 Chest pain, unspecified; F17.210 Nicotine dependence, cigarettes, uncomplicated; F41.8 Other specified anxiety disorders; I11.0 Hypertensive heart disease with heart failure; I50.21 Acute systolic (congestive) heart failure; J44.9 Chronic obstructive pulmonary disease, unspecified; R79.89 Other specified abnormal findings of blood chemistry; Z80.3 Family history of malignant neoplasm of breast; Z91.14 Patient's other noncompliance with medication regimen
CPT/HCPCS: 93005; 99285; 96372; 96374; 96375; 36415; 82553; 84443; 85025; 80053; 84484; 80307; 80061; 83880; 71275; 93010; 94640; G0378 ×2; J1644; J3490 ×3; J1940; J0780; J7620